=== PATIENT | male | born 1945 | race Caucasian/White ===

== ENCOUNTER → 2016-11-05 | Outpatient (CLI) | payer MEDICARE ==
[~2016-11-05] MED LIST: ASPI-84; CIPR500T4 PO; CLOP75TA; HYDR-757 PO; METO-351; SIMV80TA3; TAMS0.4C98 PO
[2016-11-05 08:09] LABS: ALBUMIN 3.7 G/DL (3.2-4.5); BILIRUBIN,TOTAL 0.5 MG/DL (0.1-1.0); CALCIUM 8.7 MG/DL (8.5-10.1); CREATININE SERUM 1.2 MG/DL (0.60-1.30); POTASSIUM 4.5 MMOL/L (3.6-5.0); TOTAL PROTEIN 6.1 G/DL (6.4-8.2)
== END ==
LOC: LAB 07:37
PROVIDERS: ATTEND Internal Medicine Cardiovascular Disease
DX: E78.5 Hyperlipidemia, unspecified (principal)
CPT/HCPCS: 36415; 80053; 80061

== ENCOUNTER 2017-10-14 11:44 | Outpatient (RCR) | payer MEDICARE | END 2017-10-16 | disposition home or self-care (01) | LOC: CR3 11:44 | PROVIDERS: ATTEND Internal Medicine Cardiovascular Disease | DX: Z29.8 Encounter for other specified prophylactic measures (principal) ==

== ENCOUNTER 2017-11-15 07:07 | Outpatient (RCR) | payer MEDICARE | END 2017-11-17 | disposition home or self-care (01) | LOC: CR3 07:07 | PROVIDERS: ATTEND Internal Medicine Cardiovascular Disease | DX: Z29.8 Encounter for other specified prophylactic measures (principal) ==

== ENCOUNTER 2017-12-16 07:50 | Outpatient (RCR) | payer MEDICARE | END 2017-12-18 | disposition home or self-care (01) | LOC: CR3 07:50 | PROVIDERS: ATTEND Internal Medicine Cardiovascular Disease | DX: Z29.8 Encounter for other specified prophylactic measures (principal) ==

== ENCOUNTER 2018-01-13 07:40 | Outpatient (RCR) | payer MEDICARE | END 2018-01-19 | disposition home or self-care (01) | LOC: CR3 07:40 | PROVIDERS: ATTEND Internal Medicine Cardiovascular Disease | DX: Z29.8 Encounter for other specified prophylactic measures (principal) ==

== ENCOUNTER 2018-02-14 07:04 | Outpatient (RCR) | payer MEDICARE ==
[~2018-02-14 07:04] MED LIST changes: +HYDR-4226 PO; -HYDR-757 PO
== END 2018-02-19 | disposition home or self-care (01) ==
LOC: CR3 07:04
PROVIDERS: ATTEND Internal Medicine Cardiovascular Disease
DX: Z29.8 Encounter for other specified prophylactic measures (principal)

== ENCOUNTER 2018-03-21 07:34 | Outpatient (RCR) | payer MEDICARE | END 2018-03-23 | disposition home or self-care (01) | LOC: CR3 07:34 | PROVIDERS: ATTEND Internal Medicine Cardiovascular Disease | DX: Z29.8 Encounter for other specified prophylactic measures (principal) ==

== ENCOUNTER 2018-04-21 07:23 | Outpatient (RCR) | payer MEDICARE | END 2018-04-23 | disposition home or self-care (01) | LOC: CR3 07:23 | PROVIDERS: ATTEND Internal Medicine Cardiovascular Disease | DX: Z29.8 Encounter for other specified prophylactic measures (principal) ==

== ENCOUNTER 2018-05-15 05:38 | Outpatient (CLI) | payer MEDICARE ==
[~2018-05-15] VITALS: Ht 177.8 cm; Wt 102.1 kg
[2018-05-15] MEDS ORDERED: SIMV80TA5 PO (12:58)
[2018-05-15] MEDS ORDERED: METO50TA15 PO (12:58)
[2018-05-15] MEDS ORDERED: ASPI-808 PO (12:58)
== END 2018-05-15 13:00 | disposition home or self-care (01) ==
LOC: PREOP 05:38
PROVIDERS: ATTEND Surgery
DX: Z01.818 Encounter for other preprocedural examination (principal)

== ENCOUNTER 2018-05-19 09:16 | Day surgery (SDC) | payer MEDICARE, OTHER ==
[~2018-05-19] VITALS: Ht 177.8 cm; Wt 102.1 kg
[~2018-05-19 09:16] MED LIST changes: +ASPI-808 PO; +METO50TA15 PO; +SIMV80TA5 PO
[2018-05-19] MEDS ORDERED: NS IV 500 ML 500 ML ONE (09:22)
[2018-05-19 09:35] VITALS: BP 176/95
--- NOTE | 2018-05-19 09:46 | History & Physicial ---
History of Present Illness History of Present Illness Reason for visit/HPI to undergo an upper endoscopy with concomitant colonoscopy to evaluate iron deficiency anemia. Date of Admission 05/19/18 Date Seen by a Provider: May 19, 2018 Time Seen by a Provider: 09:45 I consulted on this patient on 05/19/18 09:44 Attending Physician Jelly Hamilton MD Admitting Physician Mariah Wang MD Consult Allergies and Home Medications Allergies Coded Allergies: No Known Drug Allergies (Unverified Allergy, Mild, 10/02/08) Home Medications Aspirin 325 Mg Tablet, 325 MG PO BID, (Reported) Metoprolol Tartrate 50 Mg Tablet, 50 MG PO BID, (Reported) Simvastatin 80 Mg Tablet, 80 MG PO HS, (Reported) Patient Home Medication List Home Medication List Reviewed: Yes Past [id number] Hx Patient Social History Marrital Status: Employed/Student: employed Former Smoker, Quit: May 15, 2003 Recent Foreign Travel: No Contact w/other who traveled: No Recent Hopitalizations: No Immunizations Up To Date Date of Influenza Vaccine: Mar 17, 2018 Surgeries Yes Adenoidectomy, CABG, Tonsillectomy Respiratory No Currently Using CPAP: No Cardiovascular Yes Coronary Artery Disease, Heart Attack, Hypertension Neurological No Reproductive System Hx Reproductive Disorders: No Genitourinary Yes Kidney Stones Gastrointestinal Yes Chronic Constipation Musculoskeletal No Endocrine History of Endocrine Disorders: No HEENT History of HEENT Disorders: No Review of Systems Constitutional: no symptoms reported EENTM: no symptoms reported Respiratory: no symptoms reported Cardiovascular: no symptoms reported Gastrointestinal: no symptoms reported Genitourinary: no symptoms reported Musculoskeletal: no symptoms reported Skin: no symptoms reported Psychiatric/Neurological: No Symptoms Reported Physical Exam Vital Signs Capillary Refill : Height, Weight, BMI Height: 5'10.00" Weight: 225lbs. 0.0oz. [id number]; 32.3 BMI Method:Estimated General Appearance: No Apparent Distress Neck: Normal Inspection Respiratory: Lungs Clear Cardiovascular: Regular Rate, Rhythm Gastrointestinal: Non Tender, Soft Rectal: Deferred Extremity: Normal Inspection Neurologic/Psychiatric: Alert, Oriented x3 Skin: Warm/Dry Assessment/Plan Assessment and Plan gentleman with iron deficiency anemia. For upper endoscopy with the colonoscopy Admission Diagnosis Admission Status: Other (Outpt Proc) JELLY HAMILTON MD May 19, 2018 09:46
--- NOTE | 2018-05-19 09:47 | Conscious Sedation/ASA ---
Conscious Sedation Pre-Proced Time 09:46 ASA Score 2 For ASA 3 and 4: Consider anesthesia and medical clearance. Also, for patients with a history of failed moderate sedation consider anesthesia. Airway Lungs Heart ASA score ASA 1: a normal healthy patient ASA 2: a patient with a mild systemic disease (mid diabetes, controlled hypertension, obesity ASA 3: a patient with a severe systemic disease that limits activity (angina , COPD, prior Myocardial infarction) ASA 4: a patient with an incapacitating disease that is a constant threat to life (CHF, renal failure) ASA 5: a moribund patient not expected to survive 24 hrs. (ruptured aneurysm) ASA 6: a declared brain patient whose organs are being harvested. For emergent operations, add the letter E after the classification Mallampati Classification Grade 1 Sedation Plan Discussed options with patient/fam The patient is an appropriate candidate to undergo the planned procedure, sedation, and anesthesia. The patient immediately re-assessed prior to indication. JELLY SANDERSON MD May 19, 2018 09:47
[2018-05-19] MEDS ORDERED: NS IV 500 ML 500 ML IV PRN (09:53)
[2018-05-19] MEDS ORDERED: MIDAZOLAM 2 MG/2 ML (VERSED) VIAL IVP ONE (10:00)
[2018-05-19] MEDS ORDERED: HURRICAINE EXT TUBE (BENZOCAINE) XX PRN (10:00)
[2018-05-19] MEDS ORDERED: fentaNYL INJECTION 100 MCG/2 ML AMP IVP ONE (10:00)
--- OUTSIDE RECORDS SUMMARY | 2018-05-19 10:39 | XMS REPORT | CCD ---
Author Author Alicia Mahajan MD, [facility] Address [address] [place] [address] Phone Care Team Providers Care Sterile Instrument Technician Name Role Phone PP Unavailable CCM Unavailable Summary Purpose Interface Exchange Insurance Providers Payer name Policy type / Coverage type Covered republican ID Effective Begin Date Effective End Date WPS Medicare Part B Medicare Part B [id number] 2018 Unknown [employer] Medicare Part B [id number] Unknown Family history Father Diagnosis Age At Onset No Family Disease Entered N/A Mother Diagnosis Age At Onset Stroke Unknown Runs in the family Diagnosis Age At Onset No Family Disease Entered N/A Social History Social History Element Codes Description Effective Dates Marital status Unknown 06/26/2011 Number of children Unknown 3 06/26/2011 Employment Unknown Currently employed [employer] 06/26/[address]: 1463223 Former smoker quit in 2000 hx 2.5ppd x 35 years 06/26/2011 Has the patient ever used illegal drugs? Unknown Has never used illegal drugs 06/26/2011 Allergies, Adverse Reactions, Alerts Substance Reaction Codes Entered Date Inactivated Date Status Bee sting Unknown 06/26/2011 No Inactive Date Active * NO KNOWN DRUG ALLERGIES Unknown 06/26/2011 No Inactive Date Active * NO KNOWN FOOD ALLERGIES Unknown 06/26/2011 No Inactive Date Active Past Medical History Illness Codes Condition Status Onset Date Resolved Date Other fecal abnormalities ICD-9: 792.1 ICD-10: R19.5 Active 05/06/2018 Unknown Encounter for immunization ICD-9: V04.81 ICD-10: Z23 Active 03/19/2018 Unknown Essential (primary) hypertension ICD-9: 401.1 ICD-10: I10 Active 03/19/2018 Unknown Mixed hyperlipidemia ICD-9: 272.2 ICD-10: E78.2 Active 03/19/2018 Unknown Slow transit constipation ICD-9: 564.01 ICD-10: K59.01 Active 03/19/2018 Unknown Acute bronchitis ICD-9 : 466.0 Active 12/08/2014 Unknown Cough ICD-9: 786.2 Active 05/13/2012 Unknown BACTERIAL PNEUMONIA ICD-9: 482.9 Active 05/05/2013 Unknown HYPERLIPIDEMIA ICD-9: 272.4 Active 11/04/2012 Unknown Allergic rhinitis ICD- 9: 477.9 Active 05/13/2012 Unknown Hyperlipidemia Unknown Active 11/13/2011 Unknown Hypertension Unknown Active 06/26/2011 Unknown Abdominal pain ICD-9: 789.00 Active 06/26/2011 Unknown ESSENTIAL HYPERTENSION ICD-9: 401.9 Active 06/26/2011 Unknown FLATUL/ERUCTAT/GAS PAIN ICD-9: 787.3 Active 06/26/2011 Unknown Problems Condition Codes Effective Dates Condition Status Other fecal abnormalities ICD-9: 792.1 ICD-10: R19.5 05/06/2018 Active Encounter for immunization ICD-9: V04.81 ICD-10: Z23 03/19/2018 Active Essential (primary) hypertension ICD-9: 401.1 ICD-10: I10 03/19/2018 Active Mixed hyperlipidemia ICD-9: 272.2 ICD-10: E78.2 03/19/2018 Active Slow transit constipation ICD-9: 564.01 ICD-10: K59.01 03/19/2018 Active Acute bronchitis ICD-9 : 466.0 12/08/2014 Active Cough ICD-9: 786.2 05/13/2012 Active BACTERIAL PNEUMONIA ICD-9: 482.9 05/05/2013 Active HYPERLIPIDEMIA ICD-9: 272.4 11/04/2012 Active Allergic rhinitis ICD- 9: 477.9 05/13/2012 Active Hyperlipidemia Unknown 11/13/2011 Active Hypertension Unknown 06/26/2011 Active Abdominal pain ICD-9: 789.00 06/26/2011 Active ESSENTIAL HYPERTENSION ICD-9: 401.9 06/26/2011 Active FLATUL/ERUCTAT/GAS PAIN ICD-9: 787.3 06/26/2011 Active Medications Medication Codes Instructions Start Date Stop Date Status Fill Instructions Ventolin HFA 90 mcg/actuation aerosol inhaler RxNorm: 415750 1 INH TID 03/19/2018 10/14/2018 Active albuterol sulfate 90 mcg/actuation breath activated powder inhaler RxNorm: 0546172 1 INH TID 03/19/2018 03/19/2018 Inactive Transderm-Scop 1.5 mg transdermal patch (1 mg over 3 days) RxNorm: 655911 1 Patch TD Q72H 08/15/2015 10/13/2015 Inactive scopolamine 1.5 mg transdermal patch (1 mg over 3 days) RxNorm: 034619 1 Patch TD Q72H 08/15/2015 10/12/2015 Inactive Transderm-Scop 1.5 mg transdermal patch (1 mg over 3 days) RxNorm: 628045 1 Patch TD Q72H 08/15/2015 08/14/2015 Inactive Zithromax Z-Daniel 250 mg tablet RxNorm: 918593 1 Tablet(s) PO UD 12/09/2014 12/13/2014 Inactive zpack ceftriaxone 500 mg solution for injection RxNorm: 6488346 Inj 12/09/2014 12/09/2014 Inactive Kenalog 40 mg/mL suspension for injection RxNorm: 7088507 Milliliter(s) Inj 12/09/2014 12/09/2014 Inactive metoprolol tartrate 25 mg tablet RxNorm: 923150 1.5 Tablet(s) PO BID 05/05/2013 03/18/2018 Inactive Rocephin 500 mg solution for injection RxNorm: 072457 Inj 05/0505/05/2013 Inactive azithromycin 500 mg tablet RxNorm: 1794490 1 Tablet(s) PO daily 05/05/2013 05/09/2013 Inactive cephalexin 500 mg capsule RxNorm: 713022 1 Capsule(s) PO TID 05/11/2013 Inactive metoprolol tartrate 25 mg tablet RxNorm: 915364 1 Tablet(s) PO TID 07/17/2011 07/10/2012 Inactive metoprolol tartrate 25 mg Tab RxNorm: 005169 1 Tablet(s) PO daily 06/26/2011 07/17/2011 Inactive Lipitor 80 mg tablet RxNorm: 179205 1 Tablet(s) PO daily No Start Date Active aspirin 325 mg tablet RxNorm: 312483 1 Tablet(s) PO daily No Start Date Active Stool Softener oral RxNorm: 61617 oral No Start Date Active metoprolol tartrate 50 mg tablet RxNorm: 255608 1 Tablet(s) PO BID No Start Date Active Plavix 75 mg Tab RxNorm: 417976 1 Tablet(s) PO daily No Start Date 11/03/2012 Inactive aspirin 81 mg Cap, Delayed Release RxNorm: 407160 1 Capsule(s) PO daily No Start Date 03/18/2018 Inactive Zocor 40 mg Tab RxNorm : 943691 1 Tablet(s) PO daily No Start Date 03/18/2018 Inactive metoprolol tartrate 25 mg Tab RxNorm: 100376 1 Tablet(s) PO BID No Start Date 06/25/2011 Inactive Medication Administered Medication Codes Instructions Start Date Status Kenalog 40 mg/mL suspension for injection RxNorm: 9931432 Milliliter 12/09/2014 No longer Active ceftriaxone 500 mg solution for injection RxNorm: 9121511 12/09/2014 No longer Active Rocephin 500 mg solution for injection RxNorm: 618983 05/05/2013 No longer Active Immunizations Vaccine Codes Date Status Influenza CVX: 141 03/19/2018 completed Assessments Condition Codes Effective Dates Other fecal abnormalities ICD-10: R19.5 ICD-9: 792.1 05/06/2018 Mixed hyperlipidemia ICD-10: E78.2 ICD-9: 272.2 03/19/2018 Encounter for immunization ICD-10: Z23 ICD-9: V04.81 03/19/2018 Essential (primary) hypertension ICD-10: I10 ICD-9: 401.1 03/19/2018 Slow transit constipation ICD-10: K59.01 ICD-9: 564.01 03/19/2018 Cough ICD-9: 786.2 12/09/2014 Acute bronchitis ICD-9: 466.0 12/09/2014 ESSENTIAL HYPERTENSION SNOMED: 67019153 ICD-9: 401.9 05/26/2013 BACTERIAL PNEUMONIA ICD-9: 482.9 2012 HYPERLIPIDEMIA ICD-9: 272.4 05/05/2013 Allergic rhinitis ICD-9: 477.9 2011 Abdominal pain ICD-9: 789.00 06/26/2011 FLATUL/ERUCTAT/GAS PAIN ICD-9: 787.3 03/2012 Reason For Visit Reason For Visit Effective Dates Notes hypertension 03/19/2018 cough 12/09/2014 ~generic 05/26/2013 follow up pnuemonia 3 weeks ago pt states feeling better hypertension 05/05/2013 hypertension 11/04/2012 sore throat 05/13/2012 hypertension 11/13/2011 blood pressure followup 07/17/2011 Pt has his bp taken 3 x weekly at [facility] - 120's - 130's over 70's abdominal pain 06/26/2011 Results Observation Observation Code Item Item Code Result Date Hgb & Hct Ord65 HGB 9.8 g/dl 05/12/2018 Hgb & Hct Ord65 HCT 31.8 % 05/12/2018 Lipid Ord30 CHOL 99 mg/dL 07/08/2015 Lipid Ord30 HDL 31.0 mg/dl 07/08/2015 Lipid Ord30 TRIG 91 mg/dL 07/08/2015 Lipid Ord30 LDL 50 mg/dL 07/08/2015 Lipid Ord30 C/HDL 3.2 Ratio 07/08/2015 Cbc With Differential Ord2 WBC 6.78 K/ul 07/08/2015 Cbc With Differential Ord2 RBC 5.03 M/ul 07/08/2015 Cbc With Differential Ord2 HGB 14.8 g/dl 07/08/2015 Cbc With Differential Ord2 HCT 43.2 % 07/08/2015 Cbc With Differential Ord2 Neut% 64.1 % 07/08/2015 Cbc With Differential Ord2 Lymph% 23.7 % 07/08/2015 Cbc With Differential Ord2 MCV 85.9 fl 07/08/2015 Cbc With Differential Ord2 MCH 29.4 pg 07/08/2015 Cbc With Differential Ord2 [place]% 7.2 % 07/08/2015 Cbc With Differential Ord2 Eos% 4.6 % 07/08/2015 Cbc With Differential Ord2 MCHC 34.3 pg 07/08/2015 Cbc With Differential Ord2 PLT 251 K/ul 07/08/2015 Cbc With Differential Ord2 Baso% 0.4 % 07/08/2015 Cbc With Differential Ord2 RDW 13.9 % 07/08/2015 Cbc With Differential Ord2 Neut ABS# 4.34 K/ul 07/08/2015 Cbc With Differential Ord2 Lymph ABS# 1.61 K/ul 07/08/2015 Cbc With Differential Ord2 [place] ABS# 0.5 K/ul 07/08/2015 Cbc With Differential Ord2 Eos ABS# 0.3 K/ul 07/08/2015 Cbc With Differential Ord2 Baso ABS# 0.0 K/ul 07/08/2015 Cbc With Differential Ord2 New Analyzer Notice Please note new ref ranges starting 06-29-2015 due to implemntation of new five part differential hematolgy analyzer. 07/08/2015 Tsh Ord6 hTSH II 1.24 uIU/mL 07/08/2015 Comp Metabolic Tlu485 NA 138 mEq/L 07/08/2015 Comp Metabolic Jum339 K 4.5 mEq/L 07/08/2015 Comp Metabolic Zyo556 CL 103 mEq/L 07/08/2015 Comp Metabolic Pkm790 CO2 29.0 mEq/L 07/08/2015 Comp Metabolic Ofm794 ANION GAP 11 07/08/2015 Comp Metabolic Wsq749 GLUCOSE 95 mg/dL 07/08/2015 Comp Metabolic Skq083 Creat 1.2 mg/dL 07/08/2015 Comp Metabolic Uxf497 eGFR 65 ml/min/1.73m2 07/08/2015 Comp Metabolic Fyq876 BUN 12 mg/dL 07/08/2015 Comp Metabolic Irm986 B/C Ratio 10.2 Ratio 07/08/2015 Comp Metabolic Zep388 CALCIUM 8.8 mg/dL 07/08/2015 Comp Metabolic Hjn407 ALK PHOS 80 U/L 07/08/2015 Comp Metabolic Ozu281 AST(SGOT) 13 U/L 07/08/2015 Comp Metabolic Bia903 ALT(SGPT) 12 U/L 07/08/2015 Comp Metabolic Pcg006 BILI T 0.5 mg/dL 07/08/2015 Comp Metabolic Ned032 ALBUMIN 3.4 g/dL 07/08/2015 Comp Metabolic Jvo727 TPRO 5.6 g/dL 07/08/2015 Comp Metabolic Vmg858 GLOB 2.2 g/dL 07/08/2015 Comp Metabolic Lcn348 A/G Ratio 1.5 Ratio 07/08/2015 Comp Metabolic Pzb630 Osmo 275 mOsmo 07/08/2015 Total Psa Ord10 PSA 1.68 ng/mL 07/08/2015 Review of Systems System Result Effective Dates Constitutional No recent illness 2017 Constitutional No chills 03/19/2018 Constitutional fatigue 03/19/2018 Constitutional No fever 03/19/2018 Constitutional No insomnia 03/19/2018 Constitutional No malaise 03/19/2018 Eyes No vision change 03/19/2018 Ears/Nose/Throat/Neck No dental pain 08/2017 Ears/Nose/Throat/Neck No dizziness 2017 Ears/Nose/Throat/Neck No dysphagia 2017 Ears/Nose/Throat/Neck No headache 2017 Ears/Nose/Throat/Neck No hearing loss 08/2017 Ears/Nose/Throat/Neck No nasal allergies 03/19/2018 Ears/Nose/Throat/Neck No sore throat 08/2017 Ears/Nose/Throat/Neck No postnasal drip 03/19/2018 Ears/Nose/Throat/Neck No sinus congestion 03/19/2018 Cardiovascular No chest pain/pressure 08/2017 Cardiovascular No dyspnea 03/19/2018 Cardiovascular No edema 03/19/2018 Cardiovascular No exercise intolerance Cardiovascular No fatigue 03/19/2018 Cardiovascular No near-syncope/dizziness 03/19/2018 Respiratory No chest tightness 2017 Respiratory No cough 03/19/2018 Respiratory No dyspnea 03/19/2018 Respiratory No pedal edema 03/19/2018 Gastrointestinal No abdominal pain 2017 Gastrointestinal No constipation 2017 Gastrointestinal No diarrhea 03/19/2018 Gastrointestinal No gastroesophageal reflux 03/19/2018 Gastrointestinal No nausea 03/19/2018 Gastrointestinal No vomiting 03/19/2018 Genitourinary/Nephrology No dysuria 03/19 Genitourinary/Nephrology No nocturia 08/2017 Genitourinary/Nephrology No urinary incontinence 03/19/2018 Musculoskeletal No stiffness 03/19/2018 Musculoskeletal No swelling 03/19/2018 Musculoskeletal No muscle weakness 2017 Musculoskeletal No myalgias 03/19/2018 Dermatologic No rash 03/19/2018 Dermatologic No sores 03/19/2018 Neurologic No dizziness 03/19/2018 Neurologic No headache 03/19/2018 Neurologic No neck pain 03/19/2018 Neurologic No syncope 03/19/2018 Psychiatric No anxiety 03/19/2018 Psychiatric No depression 03/19/2018 Constitutional recent illness 12/09/2014 Constitutional No anorexia 12/09/2014 Constitutional No night sweats 2014 Constitutional No chills 12/09/2014 Constitutional No fatigue 12/09/2014 Constitutional No diaphoresis 12/09/2014 Constitutional No fever 12/09/2014 Constitutional No insomnia 12/09/2014 Constitutional No malaise 12/09/2014 Eyes No eye discharge 12/09/2014 Eyes No eye erythema 12/09/2014 Ears/Nose/Throat/Neck No dizziness 2014 Ears/Nose/Throat/Neck No headache 2014 Ears/Nose/Throat/Neck No nasal allergies 12/09/2014 Ears/Nose/Throat/Neck No nasal discharge 12/09/2014 Ears/Nose/Throat/Neck No otalgia 2014 Ears/Nose/Throat/Neck No sinus congestion 12/09/2014 Cardiovascular No chest pain/pressure Cardiovascular No dyspnea 12/09/2014 Respiratory productive sputum 12/09/2014 Respiratory No chest congestion 2014 Respiratory cough 12/09/2014 Gastrointestinal No abdominal pain 2014 Gastrointestinal No constipation 2014 Gastrointestinal No diarrhea 12/09/2014 Genitourinary/Nephrology No dysuria 12/09 Musculoskeletal No joint complaint 2014 Dermatologic No rash 12/09/2014 Neurologic No alteration of consciousness 12/09/2014 Constitutional No chills 05/26/2013 Constitutional No fever 05/26/2013 Ears/Nose/Throat/Neck No dizziness 2012 Ears/Nose/Throat/Neck No headache 2012 Cardiovascular No chest pain/pressure 03/2013 Cardiovascular No palpitations 2012 Gastrointestinal No constipation 2012 Gastrointestinal No diarrhea 05/26/2013 Gastrointestinal No nausea 05/26/2013 Gastrointestinal No vomiting 05/26/2013 Musculoskeletal No stiffness 05/26/2013 Musculoskeletal No arthralgia(s) 2012 Neurologic No dizziness 05/26/2013 Psychiatric No anxiety 05/26/2013 Psychiatric No depression 05/26/2013 Constitutional No chills 05/05/2013 Constitutional No fever 05/05/2013 Ears/Nose/Throat/Neck No dizziness 2012 Ears/Nose/Throat/Neck No headache 2012 Respiratory chest tightness 05/05/2013 Respiratory cough 05/05/2013 Respiratory No dyspnea on exertion 2012 Gastrointestinal No constipation 2012 Gastrointestinal No diarrhea 05/05/2013 Gastrointestinal No nausea 05/05/2013 Gastrointestinal No vomiting 05/05/2013 Musculoskeletal No stiffness 05/05/2013 Musculoskeletal No arthralgia(s) 2012 Neurologic No dizziness 05/05/2013 Psychiatric No anxiety 05/05/2013 Psychiatric No depression 05/05/2013 Cardiovascular hypertension 05/05/2013 Cardiovascular No fatigue 05/05/2013 Constitutional No chills 11/04/2012 Constitutional No fever 11/04/2012 Ears/Nose/Throat/Neck No dizziness 2012 Ears/Nose/Throat/Neck No headache 2012 Gastrointestinal No constipation 2012 Gastrointestinal No diarrhea 11/04/2012 Gastrointestinal No nausea 11/04/2012 Gastrointestinal No vomiting 11/04/2012 Musculoskeletal No stiffness 11/04/2012 Musculoskeletal No arthralgia(s) 2012 Neurologic No dizziness 11/04/2012 Psychiatric No anxiety 11/04/2012 Psychiatric No depression 11/04/2012 Respiratory No cough 11/04/2012 Respiratory No chest tightness 2012 Respiratory No dyspnea on exertion 2012 Constitutional No chills 05/13/2012 Constitutional No fever 05/13/2012 Ears/Nose/Throat/Neck No dizziness 2011 Ears/Nose/Throat/Neck No headache 2011 Cardiovascular No chest pain/pressure Cardiovascular No palpitations 2011 Gastrointestinal No constipation 2011 Gastrointestinal No diarrhea 05/13/2012 Gastrointestinal No nausea 05/13/2012 Gastrointestinal No vomiting 05/13/2012 Musculoskeletal No stiffness 05/13/2012 Musculoskeletal No arthralgia(s) 2011 Neurologic No dizziness 05/13/2012 Psychiatric No anxiety 05/13/2012 Psychiatric No depression 05/13/2012 Constitutional No chills 11/13/2011 Constitutional No fever 11/13/2011 Ears/Nose/Throat/Neck No dizziness 2011 Ears/Nose/Throat/Neck No headache 2011 Cardiovascular No chest pain/pressure Cardiovascular No palpitations 2011 Gastrointestinal No constipation 2011 Gastrointestinal No diarrhea 11/13/2011 Gastrointestinal No nausea 11/13/2011 Gastrointestinal No vomiting 11/13/2011 Musculoskeletal No stiffness 11/13/2011 Musculoskeletal No arthralgia(s) 2011 Neurologic No dizziness 11/13/2011 Psychiatric No anxiety 11/13/2011 Psychiatric No depression 11/13/2011 Constitutional No chills 07/17/2011 Constitutional No fever 07/17/2011 Cardiovascular No chest pain/pressure Cardiovascular No palpitations 2011 Ears/Nose/Throat/Neck No dizziness 2011 Ears/Nose/Throat/Neck No headache 2011 Gastrointestinal No nausea 07/17/2011 Gastrointestinal No vomiting 07/17/2011 Gastrointestinal No constipation 2011 Gastrointestinal No diarrhea 07/17/2011 Psychiatric No anxiety 07/17/2011 Psychiatric No depression 07/17/2011 Neurologic No dizziness 07/17/2011 Musculoskeletal No stiffness 07/17/2011 Musculoskeletal No arthralgia(s) 2011 Constitutional No fever 06/26/2011 Cardiovascular No chest pain/pressure 03/2012 Gastrointestinal No vomiting 06/26/2011 Gastrointestinal No nausea 06/26/2011 Gastrointestinal No diarrhea 06/26/2011 Gastrointestinal No constipation 2011 Constitutional No recent illness 2011 Constitutional No fatigue 06/26/2011 Constitutional No diaphoresis 06/26/2011 Constitutional No anorexia 06/26/2011 Constitutional No insomnia 06/26/2011 Eyes No eye discharge 06/26/2011 Eyes No eye erythema 06/26/2011 Ears/Nose/Throat/Neck No dizziness 2011 Ears/Nose/Throat/Neck No nasal discharge 06/26/2011 Ears/Nose/Throat/Neck No sinus congestion 06/26/2011 Ears/Nose/Throat/Neck No sore throat 03/2012 Respiratory No productive sputum 2011 Respiratory No cough 06/26/2011 Respiratory No dyspnea 06/26/2011 Ears/Nose/Throat/Neck nasal allergies 03/2012 Gastrointestinal abdominal pain 2011 Gastrointestinal No gas and bloating 03/2012 Genitourinary/Nephrology No dysuria 06/26 Musculoskeletal No back pain 06/26/2011 Dermatologic No rash 06/26/2011 Neurologic No alteration of consciousness 06/26/2011 Physical Exam Exam Name System Name Item Name Status Result Effective Dates Notes Full Exam - General 1994 Constitutional general appearance Development: well developed 03/19/2018 None Full Exam - General 1994 Constitutional general appearance Development: appears stated age 1003/19/2018 None Full Exam - General 1994 Constitutional general appearance Hygiene/Attention to Grooming: good hygiene 03/19/2018 None Full Exam - General 1994 Eyes conjunctiva /eyelids Overall: conjunctiva clear 03/19/2018 None Full Exam - General 1994 Eyes conjunctiva /eyelids Overall: cornea clear 03/19/2018 None Full Exam - General 1994 Eyes conjunctiva /eyelids Overall: eyelids normal 03/19/2018 None Full Exam - General 1994 Eyes pupils and irises Overall: pupils equal, round, reactive to light and accomodation 03/19/2018 None Full Exam - General 1994 Ears/Nose/Throat otoscopic exam Overall: external auditory canals clear 03/19/2018 None Full Exam - General 1994 Ears/Nose/Throat otoscopic exam Overall: tympanic membranes clear 03/19/2018 None Full Exam - General 1994 Ears/Nose/Throat lips/teeth/gingiva Overall: benign lips 03/19/2018 None Full Exam - General 1994 Ears/Nose/Throat lips/teeth/gingiva Overall: normal dentition 03/19/2018 None Full Exam - General 1994 Ears/Nose/Throat oral cavity/pharynx/larynx Overall: oral mucosa clear 03/19/2018 None Full Exam - General 1994 Ears/Nose/Throat oral cavity/pharynx/larynx Overall: oropharyngeal mucosa clear 03/19/2018 None Full Exam - General 1994 Ears/Nose/Throat oral cavity/pharynx/larynx Overall: hypopharynx benign 03/19/2018 None Full Exam - General 1994 Ears/Nose/Throat oral cavity/pharynx/larynx Overall: no masses 03/19/2018 None Full Exam - General 1994 Respiratory auscultation Overall: breath sounds clear bilaterally 03/19/2018 None Full Exam - General 1994 Respiratory respiratory effort/rhythm Overall: no retractions 03/19/2018 None Full Exam - General 1994 Respiratory respiratory effort/rhythm Overall: normal rate 03/19/2018 None Full Exam - General 1994 Cardiovascular extremities Overall: no clubbing 03/19/2018 None Full Exam - General 1994 Cardiovascular auscultation of heart Overall: regular rate 03/19/2018 None Full Exam - General 1994 Cardiovascular auscultation of heart Overall: normal heart sounds 03/19/2018 None Full Exam - General 1994 Abdomen abdominal exam Overall: no tenderness 03/19/2018 None Full Exam - General 1994 Abdomen abdominal exam Overall: normal bowel sounds 03/19/2018 None Full Exam - General 1994 Lymphatic neck nodes Overall: anterior cervical chain benign 03/19/2018 None Full Exam - General 1994 Lymphatic neck nodes Overall: posterior cervical chain benign 03/19/2018 None Full Exam - General 1994 Musculoskeletal spine, ribs and pelvis Overall: spine benign 03/19/2018 None Full Exam - General 1994 Musculoskeletal spine, ribs and pelvis Overall: sacroiliac joint benign 03/19/2018 None Full Exam - General 1994 Musculoskeletal spine, ribs and pelvis Overall: good posture 03/19/2018 None Full Exam - General 1994 Musculoskeletal head and neck Overall: head atraumatic 03/19/2018 None Full Exam - General 1994 Musculoskeletal head and neck Overall: cervical spine benign 03/19/2018 None Full Exam - General 1994 Neurologic cranial nerves Overall: crainial nerves 2 - 12 grossly intact 03/19/2018 None Full Exam - General 1994 Psychiatric orientation/consciousness Overall: oriented to person, place and time 03/19/2018 None Full Exam - General 1994 Psychiatric mood and affect Overall: normal mood and affect 03/19/2018 None Full Exam - General 1994 Integument inspection of skin Overall: no rash, lesions 03/19/2018 scar on central chest Full Exam - ENT Constitutional general appearance Overall: well nourished 12/09/2014 None Full Exam - ENT Constitutional general appearance Overall: well developed 12/09/2014 None Full Exam - ENT Constitutional general appearance Overall: in no acute distress 12/09/2014 None Full Exam - ENT Neurologic orientation Overall: oriented to person, place and time 12/09/2014 None Full Exam - ENT Integument inspection of skin Overall: no rash, lesions 12/09/2014 None Full Exam - ENT Musculoskeletal head and neck Overall: head atraumatic 12/09/2014 None Full Exam - ENT Lymphatic palpation of lymph nodes Overall: anterior cervical chain benign 12/09/2014 None Full Exam - ENT Lymphatic palpation of lymph nodes Overall: posterior cervical chain benign 12/09/2014 None Full Exam - ENT Abdomen abdominal exam Overall: no tenderness 12/09/2014 None Full Exam - ENT Abdomen abdominal exam Overall: normal bowel sounds 12/09/2014 None Full Exam - ENT Cardiovascular auscultation of heart Overall: regular rate 12/09/2014 None Full Exam - ENT Cardiovascular auscultation of heart Overall: normal heart sounds 12/09/2014 None Full Exam - ENT Respiratory inspection Overall: no retractions 12/09/2014 None Full Exam - ENT Respiratory inspection Overall: normal rate None Full Exam - ENT Respiratory auscultation Diffuse: rhonchi 12/09 None Full Exam - ENT Respiratory auscultation Diffuse: expiratory wheezes 12/09/2014 None Full Exam - ENT Face and Head palpation Overall: no sinus tenderness 12/09/2014 None Full Exam - ENT Ears/Nose/Throat otoscopic exam Overall: external auditory canals normal 12/09/2014 None Full Exam - ENT Ears/Nose/Throat otoscopic exam Overall: tympanic membranes normal 12/09/2014 None Full Exam - ENT Ears/Nose/Throat oropharynx Overall: oral mucosa clear 12/09/2014 None Full Exam - General 1994 Constitutional general appearance Overall: well developed 05/26/2013 None Full Exam - General 1994 Constitutional general appearance Overall: in no acute distress 05/26/2013 None Full Exam - General 1994 Constitutional general appearance Overall: well nourished 05/26/2013 None Full Exam - General 1994 Eyes pupils and irises Overall: pupils equal, round, reactive to light and accomodation 05/26/2013 None Full Exam - General 1994 Ears/Nose/Throat otoscopic exam Overall: external auditory canals clear 05/26/2013 None Full Exam - General 1994 Ears/Nose/Throat otoscopic exam Overall: tympanic membranes clear 05/26/2013 None Full Exam - General 1994 Ears/Nose/Throat oral cavity/pharynx/larynx Overall: oral mucosa clear 05/26/2013 None Full Exam - General 1994 Ears/Nose/Throat oral cavity/pharynx/larynx Overall: oropharyngeal mucosa clear 05/26/2013 None Full Exam - General 1994 Ears/Nose/Throat oral cavity/pharynx/larynx Overall: no masses 05/26/2013 None Full Exam - General 1994 Respiratory auscultation Overall: breath sounds clear bilaterally 05/26/2013 None Full Exam - General 1994 Respiratory respiratory effort/rhythm Overall: no retractions 05/26/2013 None Full Exam - General 1994 Respiratory respiratory effort/rhythm Overall: normal rate 05/26/2013 None Full Exam - General 1994 Cardiovascular auscultation of heart Overall: regular rate 05/26/2013 None Full Exam - General 1994 Cardiovascular auscultation of heart Overall: normal heart sounds 05/26/2013 None Full Exam - General 1994 Cardiovascular auscultation of heart Overall: no murmurs 05/26/2013 None Full Exam - General 1994 Musculoskeletal head and neck Overall: head atraumatic 05/26/2013 None Full Exam - General 1994 Musculoskeletal head and neck Overall: cervical spine benign 05/26/2013 None Full Exam - General 1994 Neurologic deep tendon reflexes Overall: deep tendon reflexes intact 05/26/2013 None Full Exam - General 1994 Neurologic gait Overall: no ataxia, no unsteadiness 05/26/2013 None Full Exam - General 1994 Psychiatric orientation/consciousness Overall: oriented to person, place and time 05/26/2013 None Full Exam - General 1994 Psychiatric mood and affect Overall: normal mood and affect 05/26/2013 None Full Exam - General 1994 Constitutional general appearance Overall: well developed 05/05/2013 None Full Exam - General 1994 Constitutional general appearance Overall: in no acute distress 05/05/2013 None Full Exam - General 1994 Constitutional general appearance Overall: well nourished 05/05/2013 None Full Exam - General 1994 Eyes pupils and irises Overall: pupils equal, round, reactive to light and accomodation 05/05/2013 None Full Exam - General 1994 Ears/Nose/Throat otoscopic exam Overall: external auditory canals clear 05/05/2013 None Full Exam - General 1994 Ears/Nose/Throat otoscopic exam Overall: tympanic membranes clear 05/05/2013 None Full Exam - General 1994 Ears/Nose/Throat oral cavity/pharynx/larynx Overall: oral mucosa clear 05/05/2013 None Full Exam - General 1994 Ears/Nose/Throat oral cavity/pharynx/larynx Overall: oropharyngeal mucosa clear 05/05/2013 None Full Exam - General 1994 Ears/Nose/Throat oral cavity/pharynx/larynx Overall: no masses 05/05/2013 None Full Exam - General 1994 Respiratory respiratory effort/rhythm Overall: no retractions 05/05/2013 None Full Exam - General 1994 Respiratory respiratory effort/rhythm Overall: normal rate 05/05/2013 None Full Exam - General 1994 Cardiovascular auscultation of heart Overall: regular rate 05/05/2013 None Full Exam - General 1994 Cardiovascular auscultation of heart Overall: normal heart sounds 05/05/2013 None Full Exam - General 1994 Cardiovascular auscultation of heart Overall: no murmurs 05/05/2013 None Full Exam - General 1994 Musculoskeletal head and neck Overall: head atraumatic 05/05/2013 None Full Exam - General 1994 Musculoskeletal head and neck Overall: cervical spine benign 05/05/2013 None Full Exam - General 1994 Neurologic deep tendon reflexes Overall: deep tendon reflexes intact 05/05/2013 None Full Exam - General 1994 Neurologic gait Overall: no ataxia, no unsteadiness 05/05/2013 None Full Exam - General 1995 Psychiatric orientation/consciousness Overall: oriented to person, place and time 05/05/2013 None Full Exam - General 1994 Psychiatric mood and affect Overall: normal mood and affect 05/05/2013 None Full Exam - General 1994 Respiratory auscultation Lower lung field: crackles 05/05/2013 None Full Exam - General 1994 Respiratory auscultation Upper lung field: a normal exam 05/05/2013 None Full Exam - General 1994 Abdomen abdominal exam Overall: no tenderness 05/05/2013 None Full Exam - General 1994 Abdomen abdominal exam Overall: normal bowel sounds 05/05/2013 None Full Exam - General 1994 Musculoskeletal head and neck Overall: head atraumatic 11/04/2012 None Full Exam - General 1994 Musculoskeletal head and neck Overall: cervical spine benign 11/04/2012 None Full Exam - General 1994 Neurologic deep tendon reflexes Overall: deep tendon reflexes intact 11/04/2012 None Full Exam - General 1994 Neurologic gait Overall: no ataxia, no unsteadiness 11/04/2012 None Full Exam - General 1994 Psychiatric orientation/consciousness Overall: oriented to person, place and time 11/04/2012 None Full Exam - General 1994 Psychiatric mood and affect Overall: normal mood and affect 11/04/2012 None Full Exam - General 1994 Constitutional general appearance Overall: well developed 11/04/2012 None Full Exam - General 1994 Constitutional general appearance Overall: in no acute distress 11/04/2012 None Full Exam - General 1994 Constitutional general appearance Overall: well nourished 11/04/2012 None Full Exam - General 1994 Eyes pupils and irises Overall: pupils equal, round, reactive to light and accomodation 11/04/2012 None Full Exam - General 1994 Ears/Nose/Throat otoscopic exam Overall: external auditory canals clear 11/04/2012 None Full Exam - General 1994 Ears/Nose/Throat otoscopic exam Overall: tympanic membranes clear 11/04/2012 None Full Exam - General 1994 Ears/Nose/Throat oral cavity/pharynx/larynx Overall: oral mucosa clear 11/04/2012 None Full Exam - General 1995 Ears/Nose/Throat oral cavity/pharynx/larynx Overall: oropharyngeal mucosa clear 11/04/2012 None Full Exam - General 1994 Ears/Nose/Throat oral cavity/pharynx/larynx Overall: no masses 11/04/2012 None Full Exam - General 1994 Respiratory auscultation Overall: breath sounds clear bilaterally 11/04/2012 None Full Exam - General 1994 Respiratory respiratory effort/rhythm Overall: no retractions 11/04/2012 None Full Exam - General 1994 Respiratory respiratory effort/rhythm Overall: normal rate 11/04/2012 None Full Exam - General 1994 Cardiovascular auscultation of heart Overall: regular rate 11/04/2012 None Full Exam - General 1994 Cardiovascular auscultation of heart Overall: normal heart sounds 11/04/2012 None Full Exam - General 1994 Cardiovascular auscultation of heart Overall: no murmurs 11/04/2012 None Full Exam - General 1995 Ears/Nose/Throat otoscopic exam Overall: tympanic membranes clear 05/13/2012 None Full Exam - General 1995 Ears/Nose/Throat oral cavity/pharynx/larynx Overall: oral mucosa clear 05/13/2012 None Full Exam - General 1995 Ears/Nose/Throat oral cavity/pharynx/larynx Overall: oropharyngeal mucosa clear 05/13/2012 None Full Exam - General 1994 Ears/Nose/Throat oral cavity/pharynx/larynx Overall: no masses 05/13/2012 None Full Exam - General 1994 Respiratory auscultation Overall: breath sounds clear bilaterally 05/13/2012 None Full Exam - General 1994 Respiratory respiratory effort/rhythm Overall: no retractions 05/13/2012 None Full Exam - General 1994 Respiratory respiratory effort/rhythm Overall: normal rate 05/13/2012 None Full Exam - General 1994 Cardiovascular auscultation of heart Overall: regular rate 05/13/2012 None Full Exam - General 1994 Cardiovascular auscultation of heart Overall: normal heart sounds 05/13/2012 None Full Exam - General 1994 Cardiovascular auscultation of heart Overall: no murmurs 05/13/2012 None Full Exam - General 1994 Musculoskeletal head and neck Overall: head atraumatic 05/13/2012 None Full Exam - General 1994 Musculoskeletal head and neck Overall: cervical spine benign 05/13/2012 None Full Exam - General 1994 Neurologic deep tendon reflexes Overall: deep tendon reflexes intact 05/13/2012 None Full Exam - General 1994 Neurologic gait Overall: no ataxia, no unsteadiness 05/13/2012 None Full Exam - General 1994 Constitutional general appearance Overall: well developed 05/13/2012 None Full Exam - General 1994 Constitutional general appearance Overall: in no acute distress 05/13/2012 None Full Exam - General 1994 Constitutional general appearance Overall: well nourished 05/13/2012 None Full Exam - General 1994 Eyes pupils and irises Overall: pupils equal, round, reactive to light and accomodation 05/13/2012 None Full Exam - General 1994 Ears/Nose/Throat otoscopic exam Overall: external auditory canals clear 05/13/2012 None Full Exam - General 1994 Psychiatric orientation/consciousness Overall: oriented to person, place and time 05/13/2012 None Full Exam - General 1994 Psychiatric mood and affect Overall: normal mood and affect 05/13/2012 None Full Exam - General 1994 Constitutional general appearance Overall: well developed 11/13/2011 None Full Exam - General 1994 Constitutional general appearance Overall: in no acute distress 11/13/2011 None Full Exam - General 1994 Constitutional general appearance Overall: well nourished 11/13/2011 None Full Exam - General 1994 Eyes pupils and irises Overall: pupils equal, round, reactive to light and accomodation 11/13/2011 None Full Exam - General 1994 Ears/Nose/Throat otoscopic exam Overall: external auditory canals clear 11/13/2011 None Full Exam - General 1994 Ears/Nose/Throat otoscopic exam Overall: tympanic membranes clear 11/13/2011 None Full Exam - General 1994 Ears/Nose/Throat oral cavity/pharynx/larynx Overall: oral mucosa clear 11/13/2011 None Full Exam - General 1994 Ears/Nose/Throat oral cavity/pharynx/larynx Overall: oropharyngeal mucosa clear 11/13/2011 None Full Exam - General 1994 Ears/Nose/Throat oral cavity/pharynx/larynx Overall: no masses 11/13/2011 None Full Exam - General 1994 Respiratory auscultation Overall: breath sounds clear bilaterally 11/13/2011 None Full Exam - General 1994 Respiratory respiratory effort/rhythm Overall: no retractions 11/13/2011 None Full Exam - General 1994 Respiratory respiratory effort/rhythm Overall: normal rate 11/13/2011 None Full Exam - General 1994 Cardiovascular auscultation of heart Overall: regular rate 11/13/2011 None Full Exam - General 1994 Cardiovascular auscultation of heart Overall: normal heart sounds 11/13/2011 None Full Exam - General 1994 Cardiovascular auscultation of heart Overall: no murmurs 11/13/2011 None Full Exam - General 1994 Musculoskeletal head and neck Overall: head atraumatic 11/13/2011 None Full Exam - General 1994 Musculoskeletal head and neck Overall: cervical spine benign 11/13/2011 None Full Exam - General 1995 Neurologic deep tendon reflexes Overall: deep tendon reflexes intact 11/13/2011 None Full Exam - General 1995 Neurologic gait Overall: no ataxia, no unsteadiness 11/13/2011 None Full Exam - General 1995 Psychiatric orientation/consciousness Overall: oriented to person, place and time 11/13/2011 None Full Exam - General 1995 Psychiatric mood and affect Overall: normal mood and affect 11/13/2011 None Full Exam - General 1994 Psychiatric orientation/consciousness Overall: oriented to person, place and time 07/17/2011 None Full Exam - General 1995 Psychiatric mood and affect Overall: normal mood and affect 07/17/2011 None Full Exam - General 1995 Neurologic gait Overall: no ataxia, no unsteadiness 07/17/2011 None Full Exam - General 1994 Neurologic deep tendon reflexes Overall: deep tendon reflexes intact 07/17/2011 None Full Exam - General 1994 Musculoskeletal head and neck Overall: cervical spine benign 07/17/2011 None Full Exam - General 1994 Musculoskeletal head and neck Overall: head atraumatic 07/17/2011 None Full Exam - General 1994 Cardiovascular auscultation of heart Overall: regular rate 07/17/2011 None Full Exam - General 1994 Cardiovascular auscultation of heart Overall: normal heart sounds 07/17/2011 None Full Exam - General 1994 Cardiovascular auscultation of heart Overall: no murmurs 07/17/2011 None Full Exam - General 1994 Respiratory auscultation Overall: breath sounds clear bilaterally 07/17/2011 None Full Exam - General 1994 Respiratory respiratory effort/rhythm Overall: normal rate 07/17/2011 None Full Exam - General 1994 Respiratory respiratory effort/rhythm Overall: no retractions 07/17/2011 None Full Exam - General 1994 Constitutional general appearance Overall: well nourished 07/17/2011 None Full Exam - General 1994 Constitutional general appearance Overall: well developed 07/17/2011 None Full Exam - General 1994 Constitutional general appearance Overall: in no acute distress 07/17/2011 None Full Exam - General 1994 Eyes pupils and irises Overall: pupils equal, round, reactive to light and accomodation 07/17/2011 None Full Exam - General 1994 Ears/Nose/Throat otoscopic exam Overall: tympanic membranes clear 07/17/2011 None Full Exam - General 1994 Ears/Nose/Throat otoscopic exam Overall: external auditory canals clear 07/17/2011 None Full Exam - General 1995 Ears/Nose/Throat oral cavity/pharynx/larynx Overall: oropharyngeal mucosa clear 07/17/2011 None Full Exam - General 1995 Ears/Nose/Throat oral cavity/pharynx/larynx Overall: no masses 07/17/2011 None Full Exam - General 1995 Ears/Nose/Throat oral cavity/pharynx/larynx Overall: oral mucosa clear 07/17/2011 None Full Exam - General Constitutional general appearance Overall: well nourished 06/26/2011 None Full Exam - General Constitutional general appearance Overall: well developed 06/26/2011 None Full Exam - General Constitutional general appearance Overall: in no acute distress 06/26/2011 None Full Exam - General Eyes conjunctiva/ eyelids Overall: conjunctiva clear 06/26/2011 None Full Exam - General Eyes pupils and irises Overall: pupils equal, round, reactive to light and accomodation 06/26/2011 None Full Exam - General Respiratory auscultation Overall: breath sounds clear bilaterally 06/26/2011 None Full Exam - General Respiratory respiratory effort/rhythm Overall: no retractions 06/26/2011 None Full Exam - General Respiratory respiratory effort/rhythm Overall: normal rate 06/26/2011 None Full Exam - General Cardiovascular auscultation of heart Overall: regular rate 06/26/2011 None Full Exam - General Cardiovascular auscultation of heart Overall: normal heart sounds 06/26/2011 None Full Exam - General Abdomen abdominal exam Overall: normal bowel sounds 06/26/2011 None Full Exam - General Abdomen abdominal exam Left upper quadrant: non-tender to palpation 06/26/2011 None Full Exam - General Abdomen abdominal exam Left lower quadrant: non-tender to palpation 06/26/2011 None Full Exam - General Abdomen abdominal exam Right upper quadrant: non-tender to palpation 06/26/2011 None Full Exam - General Abdomen abdominal exam Right lower quadrant: dull pain 06/26/2011 None Full Exam - General Musculoskeletal head and neck Overall: head atraumatic 06/26/2011 None Full Exam - General Neurologic deep tendon reflexes Overall: deep tendon reflexes intact 06/26/2011 None Full Exam - General Neurologic cranial nerves Overall: cranial nerves 2-12 grossly intact 06/26/2011 None Full Exam - General Psychiatric orientation/consciousness Overall: oriented to person, place and time 06/26/2011 None Procedures Procedure Codes Date OCCULT BLOOD FECES CPT -4: 14989 05/06/2018 ADMIN INFLUENZA VIRUS VAC CPT-4: G0008 03/19/2018 FLU VACC PRSV FREE INC ANTIG Formatting Model/CDA Sections, Assigned to/Franchesca Anthony CPT-4: [id number] 03/19/2018 TRIAMCINOLONE ACET INJ NOS CPT-4: J3301 12/09/2014 ROCEPHIN, PER 250 MG CPT-4: J0696 12/09/2014 THER/PROPH/DIAG INJ SC/IM CPT-4: 97653 05/05/2013 ROCEPHIN, PER 250 MG CPT-4: J0696 05/05/2013 Vital Signs Date Vital 03/19/2018 Blood Pressure 1: 144/70 Code : 8480-6 BMI: 32.6 Code : 13562-1 Heart Rate 1 : 91 bpm Height: 5'10" SpO2: 97% Weight: 224 lbs 12/09/2014 Blood Pressure 1: 118/70 Code : 8480-6 BMI: 32.2 Code : 74449-8 Heart Rate 1 : 83 bpm Height: 5'10" SpO2: 97% Temperature: 35.9 (C) / 96.7 (F) Weight: 221 lbs 05/26/2013 Blood Pressure 1: 152/90 Code : 8480-6 BMI: 33.3 Code : 15300-3 Heart Rate 1 : 78 bpm Height: 5'10" SpO2: 98% Weight: 229 lbs 05/05/2013 Blood Pressure 1: 142/92 Code : 8480-6 BMI: 33.8 Code : 14047-7 Heart Rate 1 : 64 bpm Height: 5'10" Weight: 232 lbs 11/04/2012 Blood Pressure 1: 134/88 Code : 8480-6 BMI: 33.2 Code : 26005-2 Heart Rate 1 : 60 bpm Height: 5'10" Respiratory Rate: 16 bpm Weight: 228 lbs 05/13/2012 Blood Pressure 1: 138/78 Code : 8480-6 Heart Rate 1: 60 bpm Temperature: 36.9 (C) / 98.4 (F) Weight: 236 lbs 11/13/2011 Blood Pressure 1: 126/78 Code : 8480-6 Heart Rate 1: 56 bpm Respiratory Rate : 16 bpm Weight: 226 lbs 07/17/2011 Blood Pressure 1: 132/74 Code : 8480-6 BMI: 33.0 Code : 25253-4 Heart Rate 1 : 76 bpm Height: 5'10" Respiratory Rate: 20 bpm Weight: 227 lbs 06/26/2011 Blood Pressure 1: 160/90 Code : 8480-6 BMI: 33.9 Code : 14506-6 Heart Rate 1 : 66 bpm Height: 5'10" Respiratory Rate: 20 bpm Weight: 233 lbs Functional Status No Functional Status data History of Present Illness Symptom Name Status Result Effective Date Notes hypertension Quality chronic 03/19/2018 None hypertension Quality primary hypertension 03/19/2018 None hypertension Onset and Resolution ongoing 03/19/2018 None hypertension Onset of Symptom during adulthood 03/19/2018 None hypertension Blood Pressure Values patient checking blood pressure at home - did not bring in readings 03/19/2018 -Gets it checked at [facility] twice weekly hypertension Alleviating Factors medication 03/19/2018 None hypertension Pertinent Findings Denies dizziness 03/19/2018 None hypertension Pertinent Findings dyspnea 03/19/2018 with exertion hypertension Pertinent Findings Denies edema 03/19/2018 None constipation Onset and Resolution ongoing 03/19/2018 None constipation Alleviating Factors medication 03/19/2018 (OTC stool softener ) cough Location in the lung 12/09/2014 None cough Quality productive 12/09/2014 clear cough Onset of Symptom 1 weeks ago 12/09/2014 None cough Pertinent Findings Denies chest discomfort 12/09/2014 if he coughs alot hurts where he had incisions cough Pertinent Findings dyspnea 12/09/2014 no more than usual cough Pertinent Findings Denies fever 12/09/2014 None cough Pertinent Findings Denies nasal congestion 12/09/2014 None cough Pertinent Findings sputum production 12/09/2014 None cough Limitation on Activities does not limit activities 12/09/2014 None cough Frequency of Episodes unchanged 12/09/2014 None cough Length of Episodes _ weeks 12/09/2014 None cough Significant Medical Conditions cardiac disease 12/09/2014 None cough Triggers no known associated factors 12/09/2014 None cough Alleviating Factors OTC medications 12/09/2014 None hypertension Quality chronic 05/26/2013 None hypertension Onset and Resolution ongoing 05/26/2013 None hypertension Pertinent Findings Denies anxiety 05/26/2013 None hypertension Pertinent Findings Denies confusion 05/26/2013 None hypertension Pertinent Findings Denies decreased energy 05/26/2013 None hypertension Alleviating Factors medication 05/26/2013 Pt did not take his medication this morning, hypertension Quality chronic 05/05/2013 None hypertension Onset and Resolution ongoing 05/05/2013 None hypertension Quality stable 05/05/2013 None hypertension Pertinent Findings Denies decreased energy 05/05/2013 None hypertension Pertinent Findings Denies dizziness 05/05/2013 None hypertension Pertinent Findings Denies dyspnea 05/05/2013 None hypertension Pertinent Findings Denies edema 05/05/2013 None hypertension Pertinent Findings Denies orthostatic hypotension 05/05/2013 None hypertension Pertinent Findings Denies palpitations 05/05/2013 None hypertension Pertinent Findings Denies tachycardia 05/05/2013 None hypertension Onset of Symptom during adulthood 05/05/2013 None hypertension Severity mild 05/05/2013 None hypertension Triggers stress 05/05/2013 None hypertension Alleviating Factors medication 05/05/2013 None hypertension Blood Pressure Values not checking blood pressure at home 05/05/2013 None hypertension Quality chronic 11/04/2012 None hypertension Onset and Resolution ongoing 11/04/2012 None hypertension Blood Pressure Values not checking blood pressure at home 11/04/2012 at [facility] rehab - blood pressures range from 120-130/75-80, hypertension Onset of Symptom during adulthood 11/04/2012 None hypertension Severity mild 11/04/2012 None hypertension Triggers stress 11/04/2012 None hypertension Alleviating Factors medication 11/04/2012 None sore throat Location diffusely 05/13/2012 None sore throat Quality acute 05/13/2012 None sore throat Onset and Resolution sudden in onset 05/13/2012 None sore throat Onset of Symptom 1 days ago 05/13/2012 None hypertension Quality chronic 05/13/2012 None hypertension Onset and Resolution ongoing 05/13/2012 states he is still going to rehab and has bp checked there hypertension Blood Pressure Values not checking blood pressure at home 05/13/2012 None hypertension Severity mild 05/13/2012 None hypertension Triggers stress 05/13/2012 None hypertension Pertinent Findings Denies edema 05/13/2012 None hypertension Pertinent Findings Denies muscle weakness 05/13/2012 None hypertension Blood Pressure Values patient checking blood pressure at home - did not bring in readings 05/13/2012 states checks bp at [facility] rehab 3 x week and has been running good hypertension Quality chronic 11/13/2011 None hypertension Onset and Resolution ongoing 11/13/2011 None hypertension Blood Pressure Values patient checking blood pressure at home - did not bring in readings 11/13/2011 states checks bp at cardiac rehab 3 x week and has been running good hypertension Pertinent Findings Denies edema 11/13/2011 None hypertension Pertinent Findings Denies muscle weakness 11/13/2011 None hypertension Severity mild 11/13/2011 None hypertension Triggers stress 11/13/2011 None blood pressure followup Quality chronic 07/17/2011 None blood pressure followup Onset and Resolution ongoing 07/17/2011 None blood pressure followup Onset of Symptom during adulthood 07/17/2011 None blood pressure followup Blood Pressure Values not checking blood pressure at home 07/17/2011 None blood pressure followup Severity mild 07/17/2011 None blood pressure followup Triggers stress 07/17/2011 None blood pressure followup Alleviating Factors medication 07/17/2011 None blood pressure followup Pertinent Findings Denies anxiety 07/17/2011 None blood pressure followup Pertinent Findings Denies dizziness 07/17/2011 None blood pressure followup Pertinent Findings Denies decreased energy 07/17/2011 None blood pressure followup Pertinent Findings Denies edema 07/17/2011 None abdominal pain Onset of Symptom 6 days ago 06/26/2011 None abdominal pain Limitation on Activities moderately limits activities 06/26/2011 None abdominal pain Location in the RLQ 06/26/2011 None abdominal pain Quality cramping 06/26/2011 None blood pressure followup Quality chronic 06/26/2011 None blood pressure followup Onset and Resolution ongoing 06/26/2011 None blood pressure followup Blood Pressure Values not checking blood pressure at home 06/26/2011 None blood pressure followup Frequency of Episodes unchanged. 06/26/2011 States he goes to [facility] and states his blood pressure is usually 120-130s/70s with a pulse of 70. Sees Dr. Knapp abdominal pain Quality acute 06/26/2011 None abdominal pain Onset and Resolution gradual in onset 06/26/2011 None abdominal pain Frequency of Episodes decreasing 06/26/2011 -states it is better today. abdominal pain Triggers no known associated factors 06/26/2011 None abdominal pain Alleviating Factors rest 06/26/2011 None abdominal pain Exacerbating Factors activity 06/26/2011 None Advance Directives No Advance Directive data Encounters Encounter Performer Location Codes Date ([id number]) [id number] EST. PATIENT, LEVEL IV Diagnosis: Essential (primary) hypertension[ICD10: I10] Diagnosis: Mixed hyperlipidemia[ICD10: E78.2] Diagnosis: Slow transit constipation[ICD10: K59.01] Diagnosis: Encounter for immunization[ICD10: Z23] Mariah Wang MD, [facility] CPT-4: 44379 03/19/2018 ([id number]) [id number] EST. PATIENT, LEVEL III Diagnosis: Acute bronchitis[ICD9: 466.0] Diagnosis: Cough[ICD9: 786.2] Alicia Wang MD, [facility] CPT-4: 52662 12/09/2014 ([id number]) [id number] EST. PATIENT, LEVEL III Diagnosis: ESSENTIAL HYPERTENSION[SNOMED: 10918045] Mariah Wang MD, [facility] CPT-4: 17985 05/26/2013 ([id number]) [id number] EST. PATIENT, LEVEL IV Diagnosis: ESSENTIAL HYPERTENSION[SNOMED: 47158071] Diagnosis: HYPERLIPIDEMIA[ICD9: 272.4] Mariah Wang MD, [facility] CPT- 4: 11556 05/05/2013 ([id number]) 22533 EST. PATIENT, LEVEL IV Diagnosis: ESSENTIAL HYPERTENSION[SNOMED: 53076843] Diagnosis: HYPERLIPIDEMIA[ICD9: 272.4] Mariah Wang MD, [facility] CPT- 4: 07951 11/04/2012 ([id number]) [id number] EST. PATIENT, LEVEL IV Diagnosis: ESSENTIAL HYPERTENSION[SNOMED: 00541439] Diagnosis: Cough[ICD9: 786.2] Diagnosis: Allergic rhinitis[ICD9: 477.9] Mariah Wang MD [facility] CPT- 4: [id number] 05/13/2012 ([id number]) [id number] EST. PATIENT, LEVEL III Diagnosis: ESSENTIAL HYPERTENSION[SNOMED: 54484000] Mariah Wang MD, [facility] CPT-4: 82186 11/13/2011 ([id number]) [id number] EST. PATIENT, LEVEL IV Diagnosis: ESSENTIAL HYPERTENSION[SNOMED: 91367642] Mariah Wang MD, [facility] CPT-4: 17349 07/17/2011 OFFICE VISIT, NEW - LEVEL 3 Diagnosis: Abdominal pain[ICD9: 789.00] Diagnosis: FLATUL/ERUCTAT/GAS PAIN[ICD9: 787.3] Diagnosis: ESSENTIAL HYPERTENSION[SNOMED: 23670034] Alicia Wang MD, [facility] CPT-4: 33001 06/26/2011 Plan of Care Planned Activity Notes Codes Status Date Appointment: Lab Draw 05/06/2018 Patient Education: Patient Medication Summary Completed 05/06/2018 Visit Plan: Hypertension - well controlled - continue with current medications, continue with no added salt diet. Pt has been encouraged to exercise daily. The pt has been advised to call the office if there are any acute concerns about change in blood pressure readings at home. Hyperlipidemia - pt has been counseled about appropriate diet, exercise, and need for low fat food choices. I have discussed the need for the patient to take medications as prescribed. If the patient has negative side effects from the medication, they are to CALL the office and not abruptly discontinue the medication without discussion with a practitioner in the office. We will check labs in 3-6 months for follow up on the patient's chronic medical problem and to assure normal liver response to medications. Slow transit constipation - recommended pt to stop dulcolax and start on benefiber or metamucil for increased fiber in diet. 03/19/2018 App[facility]ment: [facility] [phone] [facility] (15 min) Moderate 03/19/2018 Patient Education: Patient Medication Summary Completed 03/19/2018 Patient Education: Cholesterol Management Completed 03/19/2018 Visit Plan: Bronchitis - acute case of bronchitis identified. Pt has been given antibiotics, breathing treatments as appropriate, and pt has been instructed to call if symptoms are not improved, or if symptoms acutely worsen. 12/09/2014 Patient Education: Patient Medication Summary Completed 12/09/2014 Appointment: [facility] [phone] [facility] Follow up 11/24/2013 Visit Plan: Hypertension - uncontrolled - the patient's medications have been modified as documented in the visit note. The patient has been counseled to cut back on salt in diet for a no added salt diet, low fat diet, start an exercise program with low weight bearing exercises and higher aerobic activity for heart health. The patient is to check blood pressure readings as an outpatient and either fax, call, or email the readings to the office next week for practicioner to review. The pt is to call for acute concerns. 05/26/2013 Appointment: [facility] [phone] [facility] Follow up 05/26/2013 Patient Education: Patient Medication Summary Completed 05/26/2013 Patient Education: Hypertension Completed 05/26/2013 Visit Plan: Pneumonia - Pt has been diagnosed with pneumonia by physical exam. A chest xray has been ordered as have antibiotics. The pt is aware of the diagnosis and the need for acute treatment of this illness. Hypertension - uncontrolled - the patient's medications have been modified as documented in the visit note. The patient has been counseled to cut back on salt in diet for a no added salt diet, low fat diet, start an exercise program with low weight bearing exercises and higher aerobic activity for heart health. The patient is to check blood pressure readings as an outpatient and either fax, call, or email the readings to the office next week for practicioner to review. The pt is to call for acute concerns. Hyperlipidemia - pt has been counseled about appropriate diet, exercise, and need for low fat food choices. I have discussed the need for the patient to take medications as prescribed. If the patient has negative side effects from the medication, they are to CALL the office and not abruptly discontinue the medication without discussion with a practicioner in the office. We will check labs in 3-6 months for follow up on the patient's chronic medical problem and to assure normal liver response to medications. 05/05/2013 Appointment: [facility] [phone] [facility] Follow up 05/05/2013 Patient Education: Patient Medication Summary Completed 05/05/2013 Patient Education: Hypertension Completed 05/05/2013 Visit Plan: Hypertension - well controlled - continue with current medications, continue with no added salt diet. Pt has been encouraged to exercise daily. The pt has been advised to call the office if there are any acute concerns about change in blood pressure readings at home. Hyperlipidemia - pt has been counseled about appropriate diet, exercise, and need for low fat food choices. I have discussed the need for the patient to take medications as prescribed. If the patient has negative side effects from the medication, they are to CALL the office and not abruptly discontinue the medication without discussion with a practicioner in the office. We will check labs in 3-6 months for follow up on the patient's chronic medical problem and to assure normal liver response to medications. 11/04/2012 Appointment: Mariah Wang WPtel: [facility] Follow up 11/04/2012 Patient Education: Patient Medication Summary Completed 11/04/2012 Patient Education: Hypertension Completed 11/04/2012 Visit Plan: Hypertension - well controlled - continue with current medications, continue with no added salt diet. Pt has been encouraged to exercise daily. The pt has been advised to call the office if there are any acute concerns about change in blood pressure readings at home. Allergies - chronic - recommended pt to use allergy medication as prescribed. Pt has been counseled as the the appropriate use of the medication. Pt to call if allergy symptoms are not controlled with the medication. If using nasal spray, instructions as follows: Nasal spray- use twice daily, one spray per nostril twice daily, after 30 minutes, rinse out nose with saline spray.. Use opposite hand per nostril to spray in the nasal steroid allergy spray. URI - Pt advised to increase fluids, vitamin C. Discussed natural and expected course of this diagnosis and need to alert me if symtpoms do not follow expected course, or if any worse. RX sent to patient's pharmacy. 05/13/2012 Appointment: Mariah Wang WPtel: [facility] Established Patient Preventative visit 05/13/2012 Patient Education: Patient Medication Summary Completed 05/13/2012 Patient Education: High Blood Pressure: Essential Hypertension Completed 2011 Visit Plan: Hypertension - well controlled - continue with current medications, continue with no added salt diet. Pt has been encouraged to exercise daily. The pt has been advised to call the office if there are any acute concerns about change in blood pressure readings at home. 11/13/2011 Appointment: Mariah Wang WPtel: [facility] [facility] 11/13/2011 Patient Education: Patient Medication Summary Completed 11/13/2011 Patient Education: High Blood Pressure: Essential Hypertension Completed 2011 Visit Plan: Hypertension - well controlled - continue with current medications, continue with no added salt diet. Pt has been encouraged to exercise daily. The pt has been advised to call the office if there are any acute concerns about change in blood pressure readings at home. Pt not in renal failure, but discussed his creatinine of 1.3 and GFR of 62. I recommended less soda and more water in his dietary intake. We had a discussion of his medications and other labs, recommended follow up in about 3-4 months. 07/17/2011 Appointment: [facility] [phone] [facility] [facility] 07/17/2011 Patient Education: Patient Medication Summary Completed 07/17/2011 Patient Education: High Blood Pressure: Essential Hypertension Completed 2011 Visit Plan: Hypertension - uncontrolled - the patient's medications have been modified as documented in the visit note. The patient has been counseled to cut back on salt in diet for a no added salt diet, low fat diet, start an exercise program with low weight bearing exercises and higher aerobic activity for heart health. The patient is to check blood pressure readings as an outpatient and either fax, call, or email the readings to the office next week for practicioner to review. The pt is to call for acute concerns. Taking metoprolol twice daily as prescribed. Abd pain-cramping- discussed natural and expected course of this diagnosis and to alert me if symptoms do not follow expected course, or if any worse. Instructed patient to call or go to ER if pain persists or any worse. Patient verbalized understanding. 06/26/2011 Appointment: [facility] [phone] [id number] New Patient 06/26/2011 Patient Education: Patient Medication Summary Completed 06/26/2011 Patient Education: High Blood Pressure: Essential Hypertension Completed 2011 Instructions Comment Nasal spray- use twice daily, one spray per nostril twice daily, after 30 minutes, rinse out nose with saline spray.. Use opposite hand per nostril to spray in the nasal steroid allergy spray.. Hypertension - well controlled - continue with current medications, continue with no added salt diet. Pt has been encouraged to exercise daily. The pt has been advised to call the office if there are any acute concerns about change in blood pressure readings at home. Allergies - chronic - recommended pt to use allergy medication as prescribed. Pt has been counseled as the the appropriate use of the medication. Pt to call if allergy symptoms are not controlled with the medication. If using nasal spray, instructions as follows: Nasal spray- use twice daily, one spray per nostril twice daily, after 30 minutes, rinse out nose with saline spray.. Use opposite hand per nostril to spray in the nasal steroid allergy spray. URI - Pt advised to increase fluids, vitamin C. Discussed natural and expected course of this diagnosis and need to alert me if symtpoms do not follow expected course, or if any worse. RX sent to patient's pharmacy. . Bronchitis - acute case of bronchitis identified. Pt has been given antibiotics, breathing treatments as appropriate, and pt has been instructed to call if symptoms are not improved, or if symptoms acutely worsen. . Hypertension - well controlled - continue with current medications, continue with no added salt diet. Pt has been encouraged to exercise daily. The pt has been advised to call the office if there are any acute concerns about change in blood pressure readings at home. Pt not in renal failure, but discussed his creatinine of 1.3 and GFR of 62. I recommended less soda and more water in his dietary intake. We had a discussion of his medications and other labs, recommended follow up in about 3- 4 months. . Hypertension - uncontrolled - the patient's medications have been modified as documented in the visit note. The patient has been counseled to cut back on salt in diet for a no added salt diet, low fat diet, start an exercise program with low weight bearing exercises and higher aerobic activity for heart health. The patient is to check blood pressure readings as an outpatient and either fax , call, or email the readings to the office next week for practicioner to review. The pt is to call for acute concerns. . Pneumonia - Pt has been diagnosed with pneumonia by physical exam. A chest xray has been ordered as have antibiotics. The pt is aware of the diagnosis and the need for acute treatment of this illness. Hypertension - uncontrolled - the patient's medications have been modified as documented in the visit note. The patient has been counseled to cut back on salt in diet for a no added salt diet, low fat diet, start an exercise program with low weight bearing exercises and higher aerobic activity for heart health. The patient is to check blood pressure readings as an outpatient and either fax , call, or email the readings to the office next week for practicioner to review. The pt is to call for acute concerns. Hyperlipidemia - pt has been counseled about appropriate diet, exercise, and need for low fat food choices. I have discussed the need for the patient to take medications as prescribed. If the patient has negative side effects from the medication, they are to CALL the office and not abruptly discontinue the medication without discussion with a practicioner in the office. We will check labs in 3-6 months for follow up on the patient's chronic medical problem and to assure normal liver response to medications. . Hypertension - well controlled - continue with current medications, continue with no added salt diet. Pt has been encouraged to exercise daily. The pt has been advised to call the office if there are any acute concerns about change in blood pressure readings at home. Hyperlipidemia - pt has been counseled about appropriate diet, exercise, and need for low fat food choices. I have discussed the need for the patient to take medications as prescribed. If the patient has negative side effects from the medication, they are to CALL the office and not abruptly discontinue the medication without discussion with a practicioner in the office. We will check labs in 3-6 months for follow up on the patient's chronic medical problem and to assure normal liver response to medications. . Hypertension - well controlled - continue with current medications, continue with no added salt diet. Pt has been encouraged to exercise daily. The pt has been advised to call the office if there are any acute concerns about change in blood pressure readings at home. . Hypertension - well controlled - continue with current medications, continue with no added salt diet. Pt has been encouraged to exercise daily. The pt has been advised to call the office if there are any acute concerns about change in blood pressure readings at home. Hyperlipidemia - pt has been counseled about appropriate diet, exercise, and need for low fat food choices. I have discussed the need for the patient to take medications as prescribed. If the patient has negative side effects from the medication, they are to CALL the office and not abruptly discontinue the medication without discussion with a practitioner in the office. We will check labs in 3-6 months for follow up on the patient's chronic medical problem and to assure normal liver response to medications. Slow transit constipation - recommended pt to stop dulcolax and start on benefiber or metamucil for increased fiber in diet. Check CBC, CMP Recommend gas x as needed for gas pain, cramping. Call or go to ER for worsening symptoms or unresolved pain, nausea/vomiting, diarrhea or other concerns. Avoid gas forming foods. Recommend taking metoprolol twice daliy-6am and 6pm. . Hypertension - uncontrolled - the patient's medications have been modified as documented in the visit note. The patient has been counseled to cut back on salt in diet for a no added salt diet, low fat diet, start an exercise program with low weight bearing exercises and higher aerobic activity for heart health. The patient is to check blood pressure readings as an outpatient and either fax , call, or email the readings to the office next week for practicioner to review. The pt is to call for acute concerns. Taking metoprolol twice daily as prescribed. Abd [id number] natural and expected course of this diagnosis and to alert me if symptoms do not follow expected course, or if any worse. Instructed patient to call or go to ER if pain persists or any worse. Patient verbalized understanding.
--- OUTSIDE RECORDS SUMMARY | 2018-05-19 10:40 | XMS REPORT | CCD ---
Author Author Alicia Mahajan MD, [facility] Address [address] [place] [address] Phone Care Team Providers Care Accounting Representative Name Role Phone PP Unavailable CCM Unavailable Summary Purpose Interface Exchange Insurance Providers Payer name Policy type / Coverage type Covered constitution party ID Effective Begin Date Effective End Date WPS Medicare Part B Medicare Part B [id number] 2018 Unknown [employer] [place] Medicare Part B [id number] Unknown Family history Father Diagnosis Age At Onset No Family Disease Entered N/A Mother Diagnosis Age At Onset Stroke Unknown Runs in the family Diagnosis Age At Onset No Family Disease Entered N/A Social History Social History Element Codes Description Effective Dates Marital status Unknown 06/26/2011 Number of children Unknown 3 06/26/2011 Employment Unknown Currently employed [employer] 06/26/[address]: 5375359 Former smoker quit in 2000 hx 2.5ppd [...] Ventolin HFA 90 mcg/actuation aerosol inhaler RxNorm: 838264 1 INH TID 03/19/2018 10/14/2018 Active albuterol sulfate 90 mcg/actuation breath activated powder inhaler RxNorm: 5389983 1 INH TID 03/19/2018 03/19/2018 Inactive Transderm-Scop 1.5 mg transdermal patch (1 mg over 3 days) RxNorm: 692249 1 Patch TD Q72H 08/15/2015 10/13/2015 Inactive scopolamine 1.5 mg transdermal patch (1 mg over 3 days) RxNorm: 159007 1 Patch TD Q72H 08/15/2015 10/12/2015 Inactive Transderm-Scop 1.5 mg transdermal patch (1 mg over 3 days) RxNorm: 565357 1 Patch TD Q72H 08/15/2015 08/14/2015 Inactive Zithromax Z-Daniel 250 mg tablet RxNorm: 699544 1 Tablet(s) PO UD 12/09/2014 12/13/2014 Inactive zpack ceftriaxone 500 mg solution for injection RxNorm: 8883658 Inj 12/09/2014 12/09/2014 Inactive Kenalog 40 mg/mL suspension for injection RxNorm: 4446076 Milliliter(s) Inj 12/09/2014 12/09/2014 Inactive metoprolol tartrate 25 mg tablet RxNorm: 228661 1.5 Tablet(s) PO BID 05/05/2013 03/18/2018 Inactive Rocephin 500 mg solution for injection RxNorm: 062063 Inj 05/0505/05/2013 Inactive azithromycin 500 mg tablet RxNorm: 5375620 1 Tablet(s) PO daily 05/05/2013 05/09/2013 Inactive cephalexin 500 mg capsule RxNorm: 997106 1 Capsule(s) PO TID 05/11/2013 Inactive metoprolol tartrate 25 mg tablet RxNorm: 791264 1 Tablet(s) PO TID 07/17/2011 07/10/2012 Inactive metoprolol tartrate 25 mg Tab RxNorm: 413101 1 Tablet(s) PO daily 06/26/2011 07/17/2011 Inactive Lipitor 80 mg tablet RxNorm: 998191 1 Tablet(s) PO daily No Start Date Active aspirin 325 mg tablet RxNorm: 824247 1 Tablet(s) PO daily No Start Date Active Stool Softener oral RxNorm: 07561 oral No Start Date Active metoprolol tartrate 50 mg tablet RxNorm: 413180 1 Tablet(s) PO BID No Start Date Active Plavix 75 mg Tab RxNorm: 235747 1 Tablet(s) PO daily No Start Date 11/03/2012 Inactive aspirin 81 mg Cap, Delayed Release RxNorm: 360641 1 Capsule(s) PO daily No Start Date 03/18/2018 Inactive Zocor 40 mg Tab RxNorm : 052988 1 Tablet(s) PO daily No Start Date 03/18/2018 Inactive metoprolol tartrate 25 mg Tab RxNorm: 714576 1 Tablet(s) PO BID No Start Date 06/25/2011 Inactive Medication Administered Medication Codes Instructions Start Date Status Kenalog 40 mg/mL suspension for injection RxNorm: 5608927 Milliliter 12/09/2014 No longer Active ceftriaxone 500 mg solution for injection RxNorm: 9970444 12/09/2014 No longer Active Rocephin 500 mg solution for injection RxNorm: 290942 05/05/2013 No longer Active Immunizations Vaccine Codes [...] bronchitis ICD-9: 466.0 12/09/2014 ESSENTIAL HYPERTENSION SNOMED: 62206561 ICD-9: 401.9 05/26/2013 BACTERIAL PNEUMONIA ICD-9: 482.9 [...] Observation Code Item Item Code Result Date Lipid Ord30 CHOL 99 mg/dL 07/08/2015 Lipid [...] 29.4 pg 07/08/2015 Cbc With Differential Ord2 [place]% 7.2 % 07/08/2015 Cbc With Differential Ord2 [...] 1.61 K/ul 07/08/2015 Cbc With Differential Ord2 [place] ABS# 0.5 K/ul 07/08/2015 Cbc With Differential Ord2 Eos ABS# 0.3 K/ul 07/08/2015 Cbc With Differential Ord2 Baso ABS# 0.0 K/ul 07/08/2015 Cbc With Differential Ord2 New Analyzer Notice Please note new ref ranges starting 06-29-2015 due to implemntation of new five part differential hematolgy analyzer. 07/08/2015 Tsh Ord6 hTSH II 1.24 uIU/mL 07/08/2015 Comp Metabolic Dmf936 NA 138 mEq/L 07/08/2015 Comp Metabolic Btn323 K 4.5 mEq/L 07/08/2015 Comp Metabolic Ipp547 CL 103 mEq/L 07/08/2015 Comp Metabolic Kyz185 CO2 29.0 mEq/L 07/08/2015 Comp Metabolic Xkf956 ANION GAP 11 07/08/2015 Comp Metabolic Qdr557 GLUCOSE 95 mg/dL 07/08/2015 Comp Metabolic Vio219 Creat 1.2 mg/dL 07/08/2015 Comp Metabolic Zli832 eGFR 65 ml/min/1.73m2 07/08/2015 Comp Metabolic Jrn947 BUN 12 mg/dL 07/08/2015 Comp Metabolic Bax743 B/C Ratio 10.2 Ratio 07/08/2015 Comp Metabolic Vpr720 CALCIUM 8.8 mg/dL 07/08/2015 Comp Metabolic Aqc432 ALK PHOS 80 U/L 07/08/2015 Comp Metabolic Tzy428 AST(SGOT) 13 U/L 07/08/2015 Comp Metabolic Txs599 ALT(SGPT) 12 U/L 07/08/2015 Comp Metabolic Iro400 BILI T 0.5 mg/dL 07/08/2015 Comp Metabolic Mgi430 ALBUMIN 3.4 g/dL 07/08/2015 Comp Metabolic Wov080 TPRO 5.6 g/dL 07/08/2015 Comp Metabolic Akt113 GLOB 2.2 g/dL 07/08/2015 Comp Metabolic Gzn291 A/G Ratio 1.5 Ratio 07/08/2015 Comp Metabolic Tkz273 Osmo 275 mOsmo 07/08/2015 Total Psa Ord10 [...] clear 05/05/2013 None Full Exam - General 1995 Ears/Nose/Throat oral cavity/pharynx/larynx Overall: no masses 05/05/2013 [...] unsteadiness 05/05/2013 None Full Exam - General 1994 [...] murmurs 11/04/2012 None Full Exam - General 1994 [...] benign 11/13/2011 None Full Exam - General 1994 Neurologic [...] affect 11/13/2011 None Full Exam - General 1995 Psychiatric orientation/consciousness Overall: oriented to person, place and time 07/17/2011 None Full Exam - General 1995 Psychiatric mood and affect Overall: normal mood and affect 07/17/2011 None Full Exam - General 1995 Neurologic gait Overall: no ataxia, no unsteadiness 07/17/2011 None Full Exam - General 1995 Neurologic deep tendon reflexes Overall: deep tendon reflexes intact 07/17/2011 None Full Exam - General 1995 Musculoskeletal head and neck Overall: cervical spine [...] - General 1995 Ears/Nose/Throat otoscopic exam Overall: external auditory canals clear 07/17/2011 None Full Exam - General 1994 Ears/Nose/Throat oral cavity/pharynx/larynx Overall: oropharyngeal mucosa clear 07/17/2011 None Full Exam - General 1995 Ears/Nose/Throat oral cavity/pharynx/larynx Overall: no masses 07/17/2011 None Full Exam - General 1994 [...] Codes Date OCCULT BLOOD FECES CPT -4: 26643 05/06/2018 ADMIN INFLUENZA VIRUS VAC CPT-4: G0008 03/19/2018 FLU VACC PRSV FREE INC ANTIG Formatting Model/CDA Sections, Assigned to/Franchesca Anthony CPT-4: 96833Yojlxwa 03/19/2018 TRIAMCINOLONE ACET INJ NOS CPT-4: J3301 12/09/2014 ROCEPHIN, PER 250 MG CPT-4: J0696 12/09/2014 THER/PROPH/DIAG INJ SC/IM CPT-4: 16904 05/05/2013 ROCEPHIN, PER 250 MG CPT-4: J0696 05/05/2013 Vital Signs Date Vital 03/19/2018 Blood Pressure 1: 144/70 Code : 8480-6 BMI: 32.6 Code : 39274-7 Heart Rate 1 : 91 bpm Height: 5'10" SpO2: 97% Weight: 224 lbs 12/09/2014 Blood Pressure 1: 118/70 Code : 8480-6 BMI: 32.2 Code : 08416-5 Heart Rate 1 : 83 bpm Height: 5'10" SpO2: 97% Temperature: 35.9 (C) / 96.7 (F) Weight: 221 lbs 05/26/2013 Blood Pressure 1: 152/90 Code : 8480-6 BMI: 33.3 Code : 67830-8 Heart Rate 1 : 78 bpm Height: 5'10" SpO2: 98% Weight: 229 lbs 05/05/2013 Blood Pressure 1: 142/92 Code : 8480-6 BMI: 33.8 Code : 77527-6 Heart Rate 1 : 64 bpm Height: 5'10" Weight: 232 lbs 11/04/2012 Blood Pressure 1: 134/88 Code : 8480-6 BMI: 33.2 Code : 31047-8 Heart Rate 1 : 60 bpm Height: [...] Code : 8480-6 BMI: 33.0 Code : 47228-5 Heart Rate 1 : 76 bpm Height: 5'10" Respiratory Rate: 20 bpm Weight: 227 lbs 06/26/2011 Blood Pressure 1: 160/90 Code : 8480-6 BMI: 33.9 Code : 31752-2 Heart Rate 1 : 66 bpm Height: [...] Episodes unchanged. 06/26/2011 States he goes to [facility] and states his blood pressure [...] data Encounters Encounter Performer Location Codes Date ([id number]) 48975 EST. PATIENT, LEVEL IV Diagnosis: Essential (primary) hypertension[ICD10: I10] Diagnosis: Mixed hyperlipidemia[ICD10: E78.2] Diagnosis: Slow transit constipation[ICD10: K59.01] Diagnosis: Encounter for immunization[ICD10: Z23] Mariah Wang MD, [facility] CPT-4: 87867 03/19/2018 ([id number]) 05147 EST. PATIENT, LEVEL III Diagnosis: Acute bronchitis[ICD9: 466.0] Diagnosis: Cough[ICD9: 786.2] Alicia Wang MD [facility] CPT-4: 98674 12/09/2014 ([id number]) 60949 EST. PATIENT, LEVEL III Diagnosis: ESSENTIAL HYPERTENSION[SNOMED: 75024744] Mariah Wang MD [facility] CPT-4: 13792 05/26/2013 ([id number]) 71422 EST. PATIENT, LEVEL IV Diagnosis: ESSENTIAL HYPERTENSION[SNOMED: 56824472] Diagnosis: HYPERLIPIDEMIA[ICD9: 272.4] Mariah Wang MD, [facility] CPT- 4: 85399 05/05/2013 ([id number]) 36484 EST. PATIENT, LEVEL IV Diagnosis: ESSENTIAL HYPERTENSION[SNOMED: 67063942] Diagnosis: HYPERLIPIDEMIA[ICD9: 272.4] Mariah Wang MD [facility] CPT- 4: 19600 11/04/2012 ([id number]) 70074 EST. PATIENT, LEVEL IV Diagnosis: ESSENTIAL HYPERTENSION[SNOMED: 35757867] Diagnosis: Cough[ICD9: 786.2] Diagnosis: Allergic rhinitis[ICD9: 477.9] Mariah Wang MD, [facility] CPT- 4: 90944 05/13/2012 ([id number]) 12538 EST. PATIENT, LEVEL III Diagnosis: ESSENTIAL HYPERTENSION[SNOMED: 93764176] Mariah Wang MD [facility] CPT-4: 46649 11/13/2011 ([id number]) 26674 EST. PATIENT, LEVEL IV Diagnosis: ESSENTIAL HYPERTENSION[SNOMED: 14413477] Mariah Wang MD, [facility] CPT-4: 91021 07/17/2011 OFFICE VISIT, NEW - LEVEL 3 Diagnosis: Abdominal pain[ICD9: 789.00] Diagnosis: FLATUL/ERUCTAT/GAS PAIN[ICD9: 787.3] Diagnosis: ESSENTIAL HYPERTENSION[SNOMED: 73483518] Alicia Wang MD, [facility] CPT-4: 38422 06/26/2011 Plan of Care Planned Activity Notes Codes Status Date Patient Education: Patient Medication Summary Completed 05/06/2018 Appointment: Mar[facility] W[facility]el[id number] (15 min) Moderate 03/19/2018 Patient Education: Patient Medication Summary Completed 03/19/2018 Patient Education: Cholesterol Management Completed 03/19/2018 Patient Education: Patient Medication Summary Completed 12/09/2014 Appointment: Mariah Wang WPtel: [address] [place], [place] [phone] Follow up 11/24/2013 Appointment: Mariah Wang WPtel: [address] [place], [place] [phone] Follow up 05/26/2013 Patient Education: Patient Medication Summary Completed 05/26/2013 Patient Education: Hypertension Completed 05/26/2013 Appointment: Mariah Wang WPtel: [address] [place], [place] [phone] Follow up 05/05/2013 Patient Education: Patient Medication Summary Completed 05/05/2013 Patient Education: Hypertension Completed 05/05/2013 Appointment: Mariah Wang WPtel: [address] [place], [place] [phone] Follow up 11/04/2012 Patient Education: Patient Medication Summary Completed 11/04/2012 Patient Education: Hypertension Completed 11/04/2012 Appointment: Mariah Wang WPtel: [address] [place], [place] [phone] Established Patient Preventative visit 05/13/2012 Patient Education: Patient Medication Summary Completed 05/13/2012 Patient Education: High Blood Pressure: Essential Hypertension Completed 2011 Appointment: Mariah Wang WPtel: [address] [place], [place] [phone] Other 11/13/2011 Patient Education: Patient Medication Summary Completed 11/13/2011 Patient Education: High Blood Pressure: Essential Hypertension Completed 2011 Appointment: Mariah Wang WPtel: [address] [place], [place] [phone] Other 07/17/2011 Patient Education: Patient Medication Summary Completed 07/17/2011 Patient Education: High Blood Pressure: Essential Hypertension Completed 2011 Appointment: Alicia Mahajan WPtel[id number] New Patient 06/26/2011 Patient Education: Patient Medication Summary Completed 06/26/2011 Patient Education: High Blood Pressure: Essential Hypertension Completed 2011 Instructions No Instructions
--- OUTSIDE RECORDS SUMMARY | 2018-05-19 10:41 | XMS REPORT | Continuity of Care Document ---
Author Author [facility] Organization [facility] Address Unknown Phone Unavailable Allergies Active Description Code Type Severity Reaction Onset Reported/Identified Relationship to Patient Clinical Status Yes No Known Drug Allergies [id number] Drug Allergy Mild N/A 10/02/2008 Medications There is no data. Problems Date Dx Coded Attending Type Code Diagnosis Diagnosed By 04/28/2014 JUAN WALDEN MD Ot V45.81 AORTOCORONARY BYPASS 04/28/2014 JUAN WALDEN MD Ot V57.89 REHABILITATION PROC NEC 06/07/2014 Ot 272.4 06/07/2014 Ot 401.1 06/07/2014 Ot 414.00 06/07/2014 Ot 518.89 06/07/2014 Ot 272.4 06/07/2014 Ot 401.1 06/07/2014 Ot 414.01 06/07/2014 Ot 518.89 04/12/2016 AALIYAH FONSECA APRN Ot K57.30 DVRTCLOS OF LG INT W/O PERFORATION OR AB 04/12/2016 AALIYAH FONSECA APRN Ot N20.1 CALCULUS OF URETER 04/12/2016 AALIYAH FONSECA APRN Ot R10.32 LEFT LOWER QUADRANT PAIN 04/12/2016 AALIYAH FONSECA APRN Ot Z79.82 RESIN REMOVER (CURRENT) USE OF ASPIRIN 04/12/2016 AALIYAH FONSECA APRN Ot Z79.899 OTHER RESIN REMOVER (CURRENT) DRUG THERAPY 11/05/2016 JUAN WALDEN MD Ot 272.4 HYPERLIPIDEMIA NEC/NOS 11/05/2016 JUAN WALDEN MD Ot 403.90 HYPTNSV CHR KID DIS, UNSPEC, W CHR KD ST 11/05/2016 JUAN WALDEN MD Ot 414.00 CORON ATHEROSCLER NOS TYPE VESSEL, NATIV 11/05/2016 JUAN WALDEN MD Ot 427.31 ATRIAL FIBRILLATION 11/05/2016 JUAN WALDEN MD Ot 496 CHR AIRWAY OBSTRUCT NEC 11/05/2016 JUAN WALDEN MD Ot 585.9 CHRONIC KIDNEY DISEASE, UNSPECIFIED 11/05/2016 JUAN WALDEN MD Ot E78.5 HYPERLIPIDEMIA, UNSPECIFIED 11/28/2016 JUAN WALDEN MD, Ot E78.5 HYPERLIPIDEMIA, UNSPECIFIED 10/24/2017 JUAN WALDEN MD Ot Z29.8 ENCOUNTER FOR OTHER SPECIFIED PROPHYLACT 11/19/2017 JUAN WALDEN MD Ot Z29.8 ENCOUNTER FOR OTHER SPECIFIED PROPHYLACT 02/19/2018 JUAN WALDEN MD Ot Z29.8 ENCOUNTER FOR OTHER SPECIFIED PROPHYLACT 02/20/2018 JUAN WALDEN MD Ot Z29.8 ENCOUNTER FOR OTHER SPECIFIED PROPHYLACT 03/23/2018 JUAN WALDEN MD Ot Z01.818 ENCOUNTER FOR OTHER PREPROCEDURAL EXAMIN 03/24/2018 JUAN WALDEN MD Ot Z29.8 ENCOUNTER FOR OTHER SPECIFIED PROPHYLACT 04/23/2018 JUAN WALDEN MD Ot Z29.8 ENCOUNTER FOR OTHER SPECIFIED PROPHYLACT Procedures There is no data. Results Test Result Range Complete blood count (CBC) with automated white blood cell (WBC) differential - 04/12/16 16:06 Blood leukocytes automated count (number/volume) 10.0 10*3/uL 4.3-11.0 Blood erythrocytes automated count (number/volume) 5.15 10*6/uL 4.35-5.85 Venous blood hemoglobin measurement (mass/volume) 14.7 g/dL 13.3-17.7 Blood hematocrit (volume fraction) 42 % 40-54 Automated erythrocyte mean corpuscular volume 82 [foz_us] 80-99 Automated erythrocyte mean corpuscular hemoglobin (mass per erythrocyte) 29 pg 25-34 Automated erythrocyte mean corpuscular hemoglobin concentration measurement ( mass/volume) 35 g/dL 32-36 Automated erythrocyte distribution width ratio 13.4 % 10.0-14.5 Automated blood platelet count (count/volume) 240 10*3/uL 130-400 Automated blood platelet mean volume measurement 9.2 [foz_us] 7.4-10.4 Automated blood neutrophils/100 leukocytes 83 % 42-75 Automated blood lymphocytes/100 leukocytes 10 % 12-44 Blood monocytes/100 leukocytes 5 % 0-12 Automated blood eosinophils/100 leukocytes 2 % 0-10 Automated blood basophils/100 leukocytes 0 % 0-10 Blood neutrophils automated count (number/volume) 8.3 10*3 1.8-7.8 Blood lymphocytes automated count (number/volume) 1.0 10*3 1.0-4.0 Blood monocytes automated count (number/volume) 0.5 10*3 0.0-1.0 Automated eosinophil count 0.2 10*3/uL 0.0-0.3 Automated blood basophil count (count/volume) 0.0 10*3/uL 0.0-0.1 Complete urinalysis with reflex to culture - 04/12/16 16:06 Urine color determination YELLOW NRG Urine clarity determination CLEAR NRG Urine pH measurement by test strip 6 5-9 Specific gravity of urine by test strip 1.015 1.016- 1.022 Urine protein assay by test strip, semi-quantitative 2+ NEGATIVE Urine glucose detection by automated test strip NEGATIVE NEGATIVE Erythrocytes detection in urine sediment by light microscopy 5+ NEGATIVE Urine ketones detection by automated test strip NEGATIVE NEGATIVE Urine nitrite detection by test strip NEGATIVE NEGATIVE Urine total bilirubin detection by test strip NEGATIVE NEGATIVE Urine urobilinogen measurement by automated test strip (mass/volume) NORMAL NORMAL Urine leukocyte esterase detection by dipstick 1+ NEGATIVE Automated urine sediment erythrocyte count by microscopy (number/high power field) [HPF] NRG Automated urine sediment leukocyte count by microscopy (number/high power field ) [HPF] NRG Bacteria detection in urine sediment by light microscopy NEGATIVE NRG Crystals detection in urine sediment by light microscopy NONE NRG Casts detection in urine sediment by light microscopy NONE NRG Mucus detection in urine sediment by light microscopy NEGATIVE NRG Complete urinalysis with reflex to culture NO NRG Whole blood basic metabolic panel - 04/12/16 16:06 Serum or plasma sodium measurement (moles/volume) 135 mmol/L 135-145 Serum or plasma potassium measurement (moles/volume) 5.1 mmol/L 3.6-5.0 Serum or plasma chloride measurement (moles/volume) 106 mmol/L 98-107 Carbon dioxide 24 mmol/L 21-32 Serum or plasma anion gap determination (moles/volume) 5 mmol/L 5-14 Serum or plasma urea nitrogen measurement (mass/volume) 13 mg/dL 7-18 Serum or plasma creatinine measurement (mass/volume) 1.56 mg/dL 0.60-1.30 Serum or plasma urea nitrogen/creatinine mass ratio 8 NRG Serum or plasma creatinine measurement with calculation of estimated glomerular filtration rate 44 NRG Serum or plasma glucose measurement (mass/volume) 128 mg/dL 70-105 Serum or plasma calcium measurement (mass/volume) 8.5 mg/dL 8.5-10.1 Comprehensive metabolic panel - 11/05/16 07:43 Serum or plasma sodium measurement (moles/volume) 140 mmol/L 135-145 Serum or plasma potassium measurement (moles/volume) 4.5 mmol/L 3.6-5.0 Serum or plasma chloride measurement (moles/volume) 109 mmol/L 98-107 Carbon dioxide 23 mmol/L 21-32 Serum or plasma anion gap determination (moles/volume) 8 mmol/L 5-14 Serum or plasma urea nitrogen measurement (mass/volume) 20 mg/dL 7-18 Serum or plasma creatinine measurement (mass/volume) 1.20 mg/dL 0.60-1.30 Serum or plasma urea nitrogen/creatinine mass ratio 17 NRG Serum or plasma creatinine measurement with calculation of estimated glomerular filtration rate 60 NRG Serum or plasma glucose measurement (mass/volume) 100 mg/dL 70-105 Serum or plasma calcium measurement (mass/volume) 8.7 mg/dL 8.5-10.1 Serum or plasma total bilirubin measurement (mass/volume) 0.5 mg/dL 0.1-1.0 Serum or plasma alkaline phosphatase measurement (enzymatic activity/volume) 83 U/L 40-136 Serum or plasma aspartate aminotransferase measurement (enzymatic activity/ volume) 16 U/L 5-34 Serum or plasma alanine aminotransferase measurement (enzymatic activity/volume ) 15 U/L 0-55 Serum or plasma protein measurement (mass/volume) 6.1 g/dL 6.4-8.2 Serum or plasma albumin measurement (mass/volume) 3.7 g/dL 3.2-4.5 Lipid 1996 panel - 11/05/16 07:43 Serum or plasma triglyceride measurement (mass/volume) 89 mg/dL <150 Serum or plasma cholesterol measurement (mass/volume) 109 mg/dL < 200 Serum or plasma cholesterol in HDL measurement (mass/volume) 36 mg/ dL 40-60 Cholesterol in LDL [mass/volume] in serum or plasma by direct assay 65 mg/dL 1-129 Serum or plasma cholesterol in VLDL measurement (mass/volume) 18 mg/ dL 5-40 Encounters ACCT No. Visit Date/Time Discharge Status Pt. Type Provider Facility Loc./Unit Complaint [id number] 05/05/2018 07:27:00 05/05/2018 23:59:59 CLS Outpatient JUAN WALDEN MD [facility] [place] [address] CARDIAC REHAB PHASE 3 [id number] 04/21/2018 07:23:00 04/23/2018 00:01:00 DIS Outpatient JUAN WALDEN MD [facility] CARDIAC REHAB PHASE 3 [id number] 03/21/2018 07:34:00 03/23/2018 00:01:00 DIS Outpatient JUAN WALDEN MD [facility] CARDIACR REHAB PHASE 3 [id number] 02/14/2018 07:04:00 02/19/2018 00:01:00 DIS Outpatient JUAN WALDEN MD [facility] [place] [address] CARDIACR REHAB PHASE 3 [id number] 01/13/2018 07:40:00 01/13/2018 23:59:59 CLS Outpatient JUAN WALDEN MD [facility] [place] [address] CARDIACR REHAB PHASE 3 [id number] 12/16/2017 07:50:00 12/18/2017 00:01:00 DIS Outpatient JUAN WALDEN MD [facility] [place] [address] CARDIACR REHAB PHASE 3 [id number] 11/15/2017 07:07:00 11/17/2017 00:01:00 DIS Outpatient JUAN WALDEN MD [facility] [place] [address] CARDIACR REHAB PHASE 3 [id number] 10/14/2017 11:44:00 10/16/2017 00:01:00 DIS Outpatient JUAN WALDEN MD [facility] [place] [address] CARDIACR REHAB PHASE 3 [id number] 11/05/2016 07:37:00 11/05/2016 23:59:59 CLS Outpatient JUAN WALDEN MD [facility] LAB E78.5 [id number] 04/12/2016 15:25:00 04/12/2016 16:57:00 DIS Emergency AALIYAH FONSECA APRN [facility] ER KIDNEY PAIN [id number] 06/07/2014 07:12:00 06/07/2014 23:59:59 CLS Outpatient JUAN WALDEN MD [facility] CARD CAD,COPD,HTN,HLP,CKD [id number] 04/28/2014 08:25:00 04/28/2014 13:19:00 DIS Outpatient JUAN WALDEN MD [facility] CR STATUS POST ACB [id number] 11/14/2010 09:01:00 Document Registration [id number] 08/07/2010 07:41:00 Document Registration
[2018-05-19] MEDS ORDERED: MIDAZOLAM 2 MG/2 ML (VERSED) VIAL ONE ×4 (10:45)
[2018-05-19] MEDS ORDERED: HURRICAINE EXT TUBE (BENZOCAINE) ONE (10:45)
[2018-05-19] MEDS ORDERED: fentaNYL INJECTION 100 MCG/2 ML AMP ONE (10:45)
--- NOTE | 2018-05-19 11:41 | Endo Procedure Record ---
Endo Procedure Report Date of Procedure Last Colonoscopy: Yes May 19, 2018 Surgeon (s) JELLY SANDERSON MD Post Procedure/Op Diagnosis EGD:1. 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 2 mm irregular lesion at the distal esophagus, 34 cm from the incisor tooth 3. Long hiatal hernia 3 mm chronic antral ulcer with sloughat the base 4. Duodenitis and multiple gastric erosions Colonoscopy: Internal and external hemorrhoids. Severe sigmoid diverticulosis Procedure Performed EGD with brush cytology of esophageal lesion. Biopsy of esophageal lesion Biopsy of antral ulcer Description of Procedure Anesthesia Type: Conscious Sedation Specimen(s) collected/removed brushings from the distal esophagus for cytology. Tissue from the distal esophageal lesion. Tissue from the antral ulcer Description of the Procedure Indication for the procedures: This gentleman came in for an upper endoscopy with colonoscopy, to evaluate iron deficiency anemia. Informed consent was obtained after reviewing the procedures in detail. Description of the procedures: EGD/brush cytology of esophagus/biopsy of esophageal lesion/biopsy of antral ulcers: he was placed in left lateral position and his vital signs were monitored. Conscious sedation was achieved using Versed and fentanyl. The flexible gastroscope was then introduced down the esophagus, past the stomach, into the proximal duodenum. Findings: Esophagus: 1. A long hiatal hernia extending up to about 32 cm from the incisor teeth. 2. 2 mm raised lesion at the distal esophagus, at about 35 cm from the incisor tooth. [place] cytology and biopsy for histological examination were obtained from this area. Stomach: 1. 3 mm, chronic antral ulcer with slough at the base. Biopsy was obtained from the edges of the ulcer. 2. Multiple distal gastric erosions. Duodenum: Changes of duodenitis and multiple erosions involving the first part. He tolerated the procedure well and was turned around in preparation for colonoscopy. Impression: Iron deficiency anemia. 2 mm lesion at the distal esophagus, esophagitis versus neoplastic. Chronic antral ulcer. Biopsy pending. Colonoscopy: Examination of the perianal area revealed external hemorrhoids. Digital examination was unremarkable. The colonoscope was then introduced into the rectum and advanced all the way up to the cecum. It was then withdrawn slowly and the mucosa examined in a systematic fashion. Findings: External and internal hemorrhoids Sigmoid diverticulosis. He tolerated the procedures well and was taken to the nursing area in a stable condition. Impression: Iron deficiency anemia. No polyps. Hemorrhoids Copy Copies To 1: SHARAD FONSECA MD, XAVIER M MD May 19, 2018 11:41
[2018-05-19] MEDS ORDERED: PANT40TA2 PO (11:42)
--- NOTE | 2018-05-19 11:43 | Discharge Inst-Simple/Standard ---
Discharge Inst-Standard Discharge Medications New, Converted or Re-Newed RX: RX on Chart Patient Instructions/Follow Up Plan of Care/Instructions/FU: follow-up with me this to discuss biopsy results. To avoid nonsteroidals Activity as Tolerated: Yes Discharge Diet: No Restrictions JELLY SANDERSON MD May 19, 2018 11:43
[2018-05-19 11:50] VITALS: BP 91/52
[2018-05-19 12:20] VITALS: BP 96/61
== END 2018-05-19 12:35 | disposition home or self-care (01) ==
LOC: ENDO 09:16
PROVIDERS: ATTEND Surgery
DX: D50.9 Iron deficiency anemia, unspecified (principal); K57.30 Diverticulosis of large intestine without perforation or abscess without bleeding; K64.4 Residual hemorrhoidal skin tags; K64.8 Other hemorrhoids; K20.9 Esophagitis, unspecified; K44.9 Diaphragmatic hernia without obstruction or gangrene; K25.9 Gastric ulcer, unspecified as acute or chronic, without hemorrhage or perforation; K29.80 Duodenitis without bleeding; K29.50 Unspecified chronic gastritis without bleeding; Z87.891 Personal history of nicotine dependence; Z79.82 Long term (current) use of aspirin; Z79.899 Other long term (current) drug therapy; Z95.1 Presence of aortocoronary bypass graft; I25.10 Atherosclerotic heart disease of native coronary artery without angina pectoris; I25.2 Old myocardial infarction; I10 Essential (primary) hypertension; K59.09 Other constipation
CPT/HCPCS: 87101

== ENCOUNTER 2018-05-23 08:08 | Outpatient (RCR) | payer MEDICARE ==
[~2018-05-23 08:08] MED LIST changes: +PANT40TA2 PO
== END 2018-05-25 | disposition home or self-care (01) ==
LOC: CR3 08:08
PROVIDERS: ATTEND Internal Medicine Cardiovascular Disease
DX: Z29.8 Encounter for other specified prophylactic measures (principal)

== ENCOUNTER → 2018-05-26 | Outpatient (CLI) | payer MEDICARE, OTHER ==
[2018-05-26 10:26] LABS: ABG BASE EXCESS -0.8 MMOL/L (-2.5-2.5); ABG OXYGEN SATURATION 97 % (94-100); ABG PCO2 44 MMHG (35-45); ABG PH 7.35 (7.37-7.43); ABG PO2 76 MMHG (79-93); ABG TCO2 25.5 MMOL/L (21.0-31.0)
[2018-05-26 10:34] LABS: ALLENS TEST POSITIVE; PATIENT TEMP 98; VENTILATOR NO
== END ==
LOC: RT 09:54
PROVIDERS: ATTEND Nurse Practitioner Family
DX: J44.9 Chronic obstructive pulmonary disease, unspecified (principal); R06.00 Dyspnea, unspecified; G47.33 Obstructive sleep apnea (adult) (pediatric); Z72.0 Tobacco use
CPT/HCPCS: 36600; 82805; 94761

== ENCOUNTER 2018-06-02 13:48 | Outpatient (RCR) | payer MEDICARE, OTHER ==
[2018-05-23] MEDS: diphenhydrAMINE 50 MG/ML INJ (BENADRYL) IV SCH (13:34)
[2018-05-23] MEDS: IRON SUCROSE 200 MG/10 ML (VENOFER) VIAL IV SCH (13:35)
[2018-05-23] MEDS: ACETAMINOPHEN 325 MG TABLET PO SCH (13:35)
[2018-05-23 14:30] VITALS: BP 136/78
[2018-05-26] MEDS: ACETAMINOPHEN 325 MG TABLET PO SCH (11:00)
[2018-05-26] MEDS: IRON SUCROSE 200 MG/10 ML (VENOFER) VIAL IV SCH (11:00)
[2018-05-26 11:17] VITALS: BP 143/82
[2018-05-28] MEDS: ACETAMINOPHEN 325 MG TABLET PO SCH (16:05)
[2018-05-28] MEDS: diphenhydrAMINE 50 MG/ML INJ (BENADRYL) IV SCH (16:22)
[2018-05-28] MEDS: IRON SUCROSE 200 MG/10 ML (VENOFER) VIAL IV SCH (16:23)
[2018-05-28 16:47] VITALS: BP 118/63
[2018-05-30] MEDS: ACETAMINOPHEN 325 MG TABLET PO SCH (13:55)
[2018-05-30] MEDS: diphenhydrAMINE 50 MG/ML INJ (BENADRYL) IV SCH (13:56)
[2018-05-30] MEDS: IRON SUCROSE 200 MG/10 ML (VENOFER) VIAL IV SCH (14:04)
[2018-05-30 14:38] VITALS: BP 143/73
[~2018-06-02] VITALS: Ht 177.8 cm; Wt 102.1 kg
[2018-06-02] MEDS: ACETAMINOPHEN 325 MG TABLET PO SCH (14:00)
[2018-06-02] MEDS: IRON SUCROSE 200 MG/10 ML (VENOFER) VIAL IV SCH (14:05)
[2018-06-02 14:30] VITALS: BP 165/86
[2018-06-02] MEDS: diphenhydrAMINE 50 MG/ML INJ (BENADRYL) IV SCH (14:48)
== END 2018-06-02 14:30 | disposition home or self-care (01) ==
LOC: SDC 13:48
PROVIDERS: ATTEND Family Medicine
DX: D50.9 Iron deficiency anemia, unspecified (principal)
CPT/HCPCS: 96365

== ENCOUNTER 2018-06-21 21:05 | Outpatient (CLI) | payer MEDICARE, OTHER | END 2018-06-22 06:52 | disposition home or self-care (01) | LOC: SLEEP 21:05 | PROVIDERS: ATTEND Nurse Practitioner Family | DX: G47.33 Obstructive sleep apnea (adult) (pediatric) (principal) | CPT/HCPCS: 95810 ==

== ENCOUNTER 2018-06-23 07:21 | Outpatient (RCR) | payer MEDICARE, OTHER | END 2018-06-25 | disposition home or self-care (01) | LOC: CR3 07:21 | PROVIDERS: ATTEND Internal Medicine Cardiovascular Disease | DX: Z29.8 Encounter for other specified prophylactic measures (principal) ==

== ENCOUNTER → 2018-07-10 | Outpatient (CLI) | payer MEDICARE, OTHER ==
[~2018-07-10] MED LIST changes: +SIMV80TA21 PO; -SIMV80TA5 PO
== END ==
LOC: RAD 08:09
PROVIDERS: ATTEND Nurse Practitioner Family
DX: J44.9 Chronic obstructive pulmonary disease, unspecified (principal); J30.2 Other seasonal allergic rhinitis; F17.201 Nicotine dependence, unspecified, in remission; Z53.8 Procedure and treatment not carried out for other reasons

== ENCOUNTER 2018-07-25 07:22 | Outpatient (RCR) | payer MEDICARE, OTHER | END 2018-07-27 | disposition home or self-care (01) | LOC: CR3 07:22 | PROVIDERS: ATTEND Internal Medicine Cardiovascular Disease | DX: Z29.8 Encounter for other specified prophylactic measures (principal) ==

== ENCOUNTER 2018-08-25 07:08 | Outpatient (RCR) | payer MEDICARE, OTHER | END 2018-08-27 | disposition home or self-care (01) | LOC: CR3 07:08 | PROVIDERS: ATTEND Internal Medicine Cardiovascular Disease | DX: Z29.8 Encounter for other specified prophylactic measures (principal) ==

== ENCOUNTER 2018-09-29 07:34 | Outpatient (RCR) | payer MEDICARE, OTHER | END 2018-10-01 | disposition home or self-care (01) | LOC: CR3 07:34 | PROVIDERS: ATTEND Internal Medicine Cardiovascular Disease | DX: Z29.8 Encounter for other specified prophylactic measures (principal) ==

== ENCOUNTER 2018-11-03 07:11 | Outpatient (RCR) | payer MEDICARE, OTHER | END 2018-11-05 | disposition home or self-care (01) | LOC: CR3 07:11 | PROVIDERS: ATTEND Internal Medicine Cardiovascular Disease | DX: Z29.8 Encounter for other specified prophylactic measures (principal) ==

== ENCOUNTER 2019-01-02 07:03 | Outpatient (RCR) | payer MEDICARE, OTHER | END 2019-01-07 | disposition home or self-care (01) | LOC: CR3 07:03 | PROVIDERS: ATTEND Internal Medicine Cardiovascular Disease | DX: Z29.8 Encounter for other specified prophylactic measures (principal) ==

== ENCOUNTER 2019-02-06 07:47 | Outpatient (RCR) | payer MEDICARE, OTHER | END 2019-02-08 | disposition home or self-care (01) | LOC: CR3 07:47 | PROVIDERS: ATTEND Internal Medicine Cardiovascular Disease | DX: Z29.8 Encounter for other specified prophylactic measures (principal) ==

== ENCOUNTER → 2019-03-11 | Outpatient (RCR) | payer MEDICARE, OTHER | END | disposition home or self-care (01) | LOC: CR3 02-09 07:00 | PROVIDERS: ATTEND Internal Medicine Cardiovascular Disease | DX: Z29.8 Encounter for other specified prophylactic measures (principal) ==

== ENCOUNTER 2019-04-10 07:26 | Outpatient (RCR) | payer MEDICARE, OTHER | END 2019-04-12 | disposition home or self-care (01) | LOC: CR3 07:26 | PROVIDERS: ATTEND Internal Medicine Cardiovascular Disease | DX: Z29.8 Encounter for other specified prophylactic measures (principal) ==

== ENCOUNTER 2019-05-11 17:49 | Outpatient (RCR) | payer MEDICARE, OTHER | END 2019-05-13 | disposition home or self-care (01) | LOC: CR3 17:49 | PROVIDERS: ATTEND Internal Medicine Cardiovascular Disease | DX: Z29.8 Encounter for other specified prophylactic measures (principal) ==

== ENCOUNTER 2019-06-15 07:30 | Outpatient (RCR) | payer MEDICARE, OTHER | END 2019-06-17 | disposition home or self-care (01) | LOC: CR3 07:30 | PROVIDERS: ATTEND Internal Medicine Cardiovascular Disease | DX: Z29.8 Encounter for other specified prophylactic measures (principal) ==

== ENCOUNTER 2019-07-17 07:20 | Outpatient (RCR) | payer MEDICARE, OTHER ==
[~2019-07-17 07:20] MED LIST changes: -TAMS0.4C98 PO; +TMSL.4C PO
== END 2019-07-19 | disposition home or self-care (01) ==
LOC: CR3 07:20
PROVIDERS: ATTEND Internal Medicine Cardiovascular Disease
DX: Z29.8 Encounter for other specified prophylactic measures (principal)

== ENCOUNTER → 2019-07-20 | Outpatient (CLI) | payer MEDICARE, OTHER ==
[~2019-07-20] MED LIST changes: +RT-ALBUTEROL SULF 2.5 MG/3 ML PRE-MIX VIAL INH ONE
== END ==
LOC: RT 15:32
PROVIDERS: ATTEND Nurse Practitioner Family
DX: J44.9 Chronic obstructive pulmonary disease, unspecified (principal); F17.201 Nicotine dependence, unspecified, in remission
CPT/HCPCS: 94060; 94726; 94729

== ENCOUNTER 2019-08-04 09:36 | Outpatient (RCR) | payer MEDICARE, OTHER ==
[~2019-08-04 09:36] MED LIST changes: -RT-ALBUTEROL SULF 2.5 MG/3 ML PRE-MIX VIAL INH ONE
== END 2019-11-02 | disposition home or self-care (01) ==
LOC: CARD 09:36
PROVIDERS: ATTEND Nurse Practitioner Family
DX: R06.09 Other forms of dyspnea (principal); R53.83 Other fatigue; I48.0 Paroxysmal atrial fibrillation
CPT/HCPCS: 93225; 93226

== ENCOUNTER 2019-08-17 07:10 | Outpatient (RCR) | payer MEDICARE, OTHER | END 2019-08-19 | disposition home or self-care (01) | LOC: CR3 07:10 | PROVIDERS: ATTEND Internal Medicine Cardiovascular Disease | DX: Z29.8 Encounter for other specified prophylactic measures (principal) ==

== ENCOUNTER 2019-08-28 08:00 | Outpatient (RCR) | payer MEDICARE, OTHER | END 2019-09-20 | disposition home or self-care (01) | LOC: CR3 08:00 | PROVIDERS: ATTEND Internal Medicine Cardiovascular Disease | DX: Z29.8 Encounter for other specified prophylactic measures (principal) ==

== ENCOUNTER → 2019-08-31 | Outpatient (CLI) | payer MEDICARE, OTHER ==
--- NOTE | 2019-08-31 10:44 | Diagnostic Imaging Report ---
INDICATION: Dysphagia. Procedure was performed in conjunction with speech pathology. Video fluoroscopy was performed during swallowing of barium in multiple consistencies. Patient ingested thin liquid with a spoon and straw as well as applesauce, mechanical soft, meat and cracker consistency. Total 53 seconds of fluoroscopic time was utilized. Oral phase unremarkable. There is normal epiglottic tilt and laryngeal elevation. No penetration or aspiration was observed. No significant residue is seen. IMPRESSION: Unremarkable modified barium swallow. Dictated by: Dictated on workstation # [id number]
== END ==
LOC: RAD 10:03
PROVIDERS: ATTEND Nurse Practitioner Family
DX: R13.12 Dysphagia, oropharyngeal phase (principal)
CPT/HCPCS: 74230

== ENCOUNTER 2020-09-26 07:57 | Outpatient (RCR) | payer MEDICARE, OTHER ==
[~2020-09-26 07:57] MED LIST changes: -CIPR500T4 PO; +CIPR500T5 PO
== END 2020-09-28 | disposition home or self-care (01) ==
LOC: CR3 07:57
PROVIDERS: ATTEND Internal Medicine Cardiovascular Disease
DX: Z29.8 Encounter for other specified prophylactic measures (principal)

== ENCOUNTER 2020-10-28 07:36 | Outpatient (RCR) | payer MEDICARE, OTHER | END 2020-10-30 | disposition home or self-care (01) | LOC: CR3 07:36 | PROVIDERS: ATTEND Internal Medicine Cardiovascular Disease | DX: Z29.8 Encounter for other specified prophylactic measures (principal) ==

== ENCOUNTER 2020-11-28 07:49 | Outpatient (RCR) | payer MEDICARE, OTHER | END 2020-11-30 | disposition home or self-care (01) | LOC: CR3 07:49 | PROVIDERS: ATTEND Internal Medicine Cardiovascular Disease | DX: Z29.8 Encounter for other specified prophylactic measures (principal) ==

== ENCOUNTER 2020-12-16 07:50 | Outpatient (RCR) | payer MEDICARE, OTHER | END 2021-01-01 | disposition home or self-care (01) | LOC: CR3 07:50 | PROVIDERS: ATTEND Internal Medicine Cardiovascular Disease | DX: Z29.8 Encounter for other specified prophylactic measures (principal) ==

== ENCOUNTER 2021-01-30 07:14 | Outpatient (RCR) | payer MEDICARE, OTHER | END 2021-02-01 | disposition home or self-care (01) | LOC: CR3 07:14 | PROVIDERS: ATTEND Internal Medicine Cardiovascular Disease | DX: Z29.8 Encounter for other specified prophylactic measures (principal) ==

== ENCOUNTER 2021-03-06 07:15 | Outpatient (RCR) | payer MEDICARE, OTHER | END 2021-03-08 | disposition home or self-care (01) | LOC: CR3 07:15 | PROVIDERS: ATTEND Internal Medicine Cardiovascular Disease | DX: Z29.8 Encounter for other specified prophylactic measures (principal) ==

== ENCOUNTER 2021-04-07 07:20 | Outpatient (RCR) | payer MEDICARE, OTHER | END 2021-04-09 | disposition home or self-care (01) | LOC: CR3 07:20 | PROVIDERS: ATTEND Internal Medicine Cardiovascular Disease | DX: Z29.8 Encounter for other specified prophylactic measures (principal) ==

== ENCOUNTER 2021-04-10 07:05 | Outpatient (RCR) | payer MEDICARE, OTHER | END 2021-06-16 | disposition home or self-care (01) | LOC: CARD 07:05 | PROVIDERS: ATTEND Nurse Practitioner Family | DX: R06.09 Other forms of dyspnea (principal); R53.83 Other fatigue; I48.0 Paroxysmal atrial fibrillation ==

== ENCOUNTER 2021-05-08 07:22 | Outpatient (RCR) | payer MEDICARE, OTHER | END 2021-05-10 | disposition home or self-care (01) | LOC: CR3 07:22 | PROVIDERS: ATTEND Internal Medicine Cardiovascular Disease | DX: Z29.8 Encounter for other specified prophylactic measures (principal) ==

== ENCOUNTER 2021-07-14 07:08 | Outpatient (RCR) | payer MEDICARE, OTHER | END 2021-07-16 | disposition home or self-care (01) | LOC: CR3 07:08 | PROVIDERS: ATTEND Internal Medicine Cardiovascular Disease | DX: Z29.8 Encounter for other specified prophylactic measures (principal) ==

== ENCOUNTER 2021-08-14 07:06 | Outpatient (RCR) | payer MEDICARE, OTHER | END 2021-08-16 | disposition home or self-care (01) | LOC: CR3 07:06 | PROVIDERS: ATTEND Internal Medicine Cardiovascular Disease | DX: Z29.8 Encounter for other specified prophylactic measures (principal) ==

== ENCOUNTER 2021-10-02 07:01 | Outpatient (RCR) | payer MEDICARE, OTHER | END 2021-10-14 | disposition home or self-care (01) | LOC: CR3 07:01 | PROVIDERS: ATTEND Internal Medicine Cardiovascular Disease | DX: Z29.8 Encounter for other specified prophylactic measures (principal) ==

== ENCOUNTER 2021-12-11 07:08 | Outpatient (RCR) | payer MEDICARE, OTHER | END 2021-12-14 | disposition home or self-care (01) | LOC: CR3 07:08 | PROVIDERS: ATTEND Internal Medicine Cardiovascular Disease | DX: Z29.8 Encounter for other specified prophylactic measures (principal) ==

== ENCOUNTER 2022-02-12 07:04 | Outpatient (RCR) | payer MEDICARE, OTHER | END 2022-02-13 | disposition home or self-care (01) | LOC: CR3 07:04 | PROVIDERS: ATTEND Internal Medicine Cardiovascular Disease | DX: Z29.8 Encounter for other specified prophylactic measures (principal) ==

== ENCOUNTER 2022-04-13 07:14 | Outpatient (RCR) | payer MEDICARE, OTHER | END 2022-04-15 | disposition home or self-care (01) | LOC: CR3 07:14 | PROVIDERS: ATTEND Internal Medicine Cardiovascular Disease | DX: Z29.8 Encounter for other specified prophylactic measures (principal) ==

== ENCOUNTER 2022-05-14 14:51 | Outpatient (RCR) | payer MEDICARE, OTHER | END 2022-05-16 | disposition home or self-care (01) | LOC: CR3 14:51 | PROVIDERS: ATTEND Internal Medicine Cardiovascular Disease | DX: Z29.8 Encounter for other specified prophylactic measures (principal) ==

== ENCOUNTER → 2022-07-16 | Outpatient (RCR) | payer MEDICARE, OTHER | END | disposition home or self-care (01) | LOC: CR3 05-18 07:10 | PROVIDERS: ATTEND Internal Medicine Cardiovascular Disease | DX: Z29.8 Encounter for other specified prophylactic measures (principal) ==

== ENCOUNTER 2022-09-10 07:13 | Outpatient (RCR) | payer MEDICARE, OTHER | END 2022-09-13 | disposition home or self-care (01) | LOC: CR3 07:13 | PROVIDERS: ATTEND Internal Medicine Cardiovascular Disease | DX: Z29.8 Encounter for other specified prophylactic measures (principal) ==

== ENCOUNTER 2022-10-12 07:04 | Outpatient (RCR) | payer MEDICARE, OTHER | END 2022-10-14 | disposition home or self-care (01) | LOC: CR3 07:04 | PROVIDERS: ATTEND Internal Medicine Cardiovascular Disease | DX: Z29.8 Encounter for other specified prophylactic measures (principal) ==

== ENCOUNTER → 2022-12-14 | Outpatient (RCR) | payer MEDICARE, OTHER | END | disposition home or self-care (01) | LOC: CR3 10-15 07:11 | PROVIDERS: ATTEND Internal Medicine Cardiovascular Disease | DX: Z29.8 Encounter for other specified prophylactic measures (principal) ==

== ENCOUNTER 2023-02-11 07:11 | Outpatient (RCR) | payer MEDICARE, OTHER | END 2023-02-13 | disposition home or self-care (01) | LOC: CR3 07:11 | PROVIDERS: ATTEND Internal Medicine Cardiovascular Disease | DX: Z29.8 Encounter for other specified prophylactic measures (principal) ==

== ENCOUNTER → 2023-04-15 | Outpatient (RCR) | payer MEDICARE, OTHER | END | disposition home or self-care (01) | LOC: CR3 02-15 07:14 | PROVIDERS: ATTEND Internal Medicine Cardiovascular Disease | DX: Z01.89 Encounter for other specified special examinations (principal) ==